=== PATIENT | male | born 1980 | race Caucasian/White ===

== ENCOUNTER → 2020-07-23 13:17 | Outpatient (CLI) | payer OTHER, SELFPAY ==
--- NOTE | ~2020-07-23 | XR_ITS ---
EXAMINATION: XR fl inj hip LT for MR/CT DATE: 07/23/2020 14:40 INDICATION: Left hip pain, possible labral tear TECHNIQUE: A time-out was performed to verify the patient's name, date of , and procedure to b e performed. The procedure including the risks and benefits was discussed with the patient. Risks dis cussed included bleeding and infection. The patient understood the risks and agreed to proceed. The s kin overlying the left hip joint was prepared and draped in usual sterile fashion. The skin and subcu taneous tissues were infiltrated with 1% lidocaine for local anesthesia. A 22 G needle was advanced under fluoroscopic guidance into the joint. Injectate consisting of 12 mL of 1:2 1% lidocaine and 1:2 Omnipaque 240 was instilled. The needle was removed and the entry site was cleaned and dressed. Ther e were no immediate complications. Fluoroscopy exposure time was 1.0 minutes. The DAP for this proced ure was 12.704 Gycm2. FINDINGS: Real-time fluoroscopy demonstrates the needle and contrast in the left hip joint. IMPRESSION: 1. Successful left hip joint injection of contrast for subsequent CT arthrography. Reviewed, dictated and finalized at location B. IMPRESSION: 1. Successful left hip joint injection of contrast for subsequent CT arthrograp .
--- NOTE | ~2020-07-23 | CT_ITS ---
EXAMINATION: CT hip LT w con DATE: 07/23/2020 14:39 INDICATION: Left hip pain. Left hip labral tear. TECHNIQUE: Computed tomography (CT) of the left hip was performed without intravenous contrast after intra-articular injection of contrast (CT arthrogram). Automated exposure control and iterative recon struction technique were employed. The dose-length product was 213.81 mGy-cm. COMPARISON: None FINDINGS: Bone alignment is normal. No fracture. There is severe left hip osteoarthritis. The left ac etabular labrum is torn. IMPRESSION: 1. Severe left hip osteoarthritis. Reviewed, dictated and finalized at location A.
== END ==
PROVIDERS: Visit Provider Chiropractor
DX: M16.12 Unilateral primary osteoarthritis, left hip (principal)
CPT/HCPCS: 20610; 73701; 77002; Q9966; Q9967

== ENCOUNTER 2021-08-07 11:54 | Outpatient (CLI) | payer OTHER, SELFPAY ==
[2021-08-07 13:33] LABS: Urine Cotinine NEGATIVE
[2021-08-07 13:46] LABS: Hemoglobin A1C 4.9 % (<5.7)
== END 2021-08-07 11:55 | disposition home or self-care (01) ==
LOC: ANHSURGERY 11:58
PROVIDERS: PCP Family Medicine; Visit Provider Orthopaedic Surgery
DX: M16.12 Unilateral primary osteoarthritis, left hip (principal); Z01.818 Encounter for other preprocedural examination
CPT/HCPCS: 80307; 83036; 86850; 86900; 86901; 87070

== ENCOUNTER 2021-08-18 02:29 | Day surgery (SDC) | payer OTHER, SELFPAY ==
[2021-08-07 12:05] VITALS: BMI 39.7
[2021-08-07 12:39] VITALS: BP 152/92; PULSE 85; RESP 18; TEMP 36.7; O2SAT 99
--- NOTE | 2021-08-07 12:42 | PC.NURSE ---
Report to the Outpatient Waiting Room, entrance under the green pavilion located off [facility], at time _0600 on date 08/18/21 . OR Time: _0730 . - You and your visitor will be asked a series of questions to screen for COVID 19 for your protection. - Only one visitor is allowed at this time. - The patient visitor is requested to leave or wait in car when not with patient. - A mask is required within the hospital. Patients may have clear liquids (water, carbonated beverages, clear teas, apple juice) until 3 hours prior to surgery with a maximum of 20 ounces. - No food from midnight until time of surgery - Infants may have breast milk until 4 hours before surgery, infant formula 6 hours prior to surgery. - Children will be allowed to drink immediately following surgery. If applicable, please bring a bottle or sippy cup to assist with drinking. Juice, water, soda, and popsicles are readily available. For infants on formula, please bring formula the day of surgery. Pacifiers are allowed. Take the following medications with a SIP of water the morning of surgery: __DILTIAZEM,DOFETILIDE Medications to discontinue per physician ___CORA PER DR SANTANA NEXT APPT 08/11/21 Date to take last dose Please no make-up, nail welsh, hairspray, perfume, deodorant, or body powder the day of surgery. No jewelry (including any body piercings) or valuables the day of surgery, leave them at home. Please take a shower or bath the night before, or the morning of, surgery with an antibacterial soap. Wear comfortable, loose fitting clothing. Children are encouraged to wear pajamas. - Jewelry must be removed prior to entering the operating room. Rings and piercings that are not removed may be cut off. - The hospital will not accept responsibility for valuables. - Please leave all valuables, including medications, at home the day of surgery. If you are going home after surgery, a licensed otr flatbed driver must drive you home. - NO public transportation without another adult. - We recommend that an adult stay with you for 24 hours following discharge. - We also recommend that you do not drive, make important decision, drink alcoholic beverages, or take any drugs that were not prescribed by your health care provider for at least 24 hours after your discharge time. For Pediatric surgeries, we recommend two adults accompany the child home (only one inside the building at this time). Follow any additional instructions given to you from your surgeon. If you or anyone in your household have experienced Covid symptoms in the past week, please notify your surgeon or the nurse liaison at the phone number below for possible testing. VERBAL AND WRITTEN instructions given to __PT and asked if any additional questions and then verbalized understanding. Patient advised to call surgeon office or pre surgery nurse liaison [phone] if any additional questions.
--- NOTE | 2021-08-15 12:08 | PM.IMHP ---
H&P: HPI History of Present Illness Date/Time: 08/15/21 12:08 41-year-old male patient Dr. Iqbal who presents today for a left anterior total hip arthroplasty. Patient has been having symptoms for the last year in this left hip. Pain is over the anterior left thigh and left groin. He has pain with weight-bearing and most daily activities. He is unable take anti-inflammatories because he is on Xarelto due to history of AFib. He has been working on weight loss for the last several years. He has finally gotten his weight down so that his BMI is under 40. patient does have severe arthritis in the hip with symptoms on a daily basis. He is fairly miserable and feels he would rather proceed with total hip arthroplasty rather continue nonsurgical treatment <HUGO Vital - Last Filed: 08/15/21 12:15> Chief Complaint: Left hip DJD <HUGO Vital - Last Filed: 08/15/21 12:15> Review of Systems Review of Systems: All systems reviewed & are unremarkable except as noted in HPI and below <HUGO Vital - Last Filed: 08/15/21 12:15> [facility] Past Medical History Medical History: Medical History (Updated 08/18/21 @ 06:59 by Titus Stokes MD) Atrial fibrillation with RVR Chronic pain Extreme obesity EVANGELINA on CPAP Pacemaker Pilonidal cyst <HUGO Vital - Last Filed: 08/15/21 12:15> Surgical History Surgical History: Surgical History H/O cardiac radiofrequency ablation <HUGO Vital - Last Filed: 08/15/21 12:15> Family History Family History: Family History Father Alcohol abuse Heart disease Hypertension Acute myocardial infarction Mother Hypertension <HUGO Vital - Last Filed: 08/15/21 12:15> Social History Social History: Social History Social History: Single Smoking packs per day: 1 Smoking cigarettes per day: 20.0 Years smoked: 10 Smoking pack-years: 10.00 Smoking status: Former smoker Tobacco type: cigarettes Second hand tobacco smoke exposure: No Smoking end date: 04/12/14 Additional smoking assessment comments: DENIES ANY FORM OF TOBACCO USE Alcohol intake: former Substance use: current Substance use type: marijuana Last use: 08/06/21 Living arrangements: other Additional living arrangements comments: Pt and his girlfriend live together. Additional occupation/education comments: jeweler Gender identity (if verbalized by the patient): Male Sexual Orientation (if Verbalized by the Patient): Straight or Heterosexual Spiritual care concerns: No <HUGO Vital - Last Filed: 08/15/21 12:15> Meds Home Medications and Allergies Home medications: Home Medications Medication Instructions Recorded Confirmed Type diltiazem HCl 180 mg 360 mg PO BID 08/05/21 08/07/21 History capsule,extended release 24 hr dofetilide 500 mcg capsule 500 mcg PO Q12H 08/05/21 08/07/21 History furosemide 20 mg tablet 10 mg PO QAM 08/05/21 08/07/21 History magnesium oxide 800 mg PO BID 08/05/21 08/07/21 History potassium chloride 20 mEq 20 meq PO BID 08/05/21 08/07/21 History tablet,extended release(part/cryst) rivaroxaban 20 mg tablet 20 mg PO DAILY 08/05/21 08/07/21 History tramadol 50 mg tablet 50 mg PO Q6H PRN 08/05/21 08/07/21 History acetaminophen [Tylenol Arthritis 1,300 mg PO Q12H PRN 08/07/21 08/07/21 History Pain] <HUGO Vital - Last Filed: 08/15/21 12:15> Allergies/Adverse reactions: Allergies Allergy/AdvReac Type Severity Reaction Status Date / Time Cephalosporins Allergy Mild Hives Verified 08/07/21 12:12 Penicillins Allergy Mild Hives Verified 08/07/21 12:12 CEFADROXIL (Generic Allergy) Allergy Mild Hives Uncoded 08/07/21 12:12 NKFA Allergy Mild Hives Uncoded 08/07/21 12:12 <HUGO Vital - Last Derek
[2021-08-18] VITALS (19 sets, daily range): BP systolic 121–162; BP diastolic 75–94; PULSE 85–103; RESP 10–24; TEMP 36–36.8; O2SAT 98–100
--- NOTE | ~2021-08-18 | XR_ITS ---
XR hip LT 1V w AP pelvis DATE: 08/18/2021 11:38 INDICATION: Left total hip arthroplasty anterior approach TECHNIQUE: Postoperative portable AP and lateral views of left hip COMPARISON: None FINDINGS: Status post surgical resection of left femoral head and neck and placement of left total hi p replacement in normal alignment. There is expected mild postoperative subcutaneous emphysema. IMPRESSION: Status post left total hip arthroplasty Reviewed, dictated and finalized at location B.
--- NOTE | ~2021-08-18 | XR_ITS ---
XR surgery orthopedic DATE: 08/18/2021 11:15 INDICATION: Left total hip arthroplasty anterior approach TECHNIQUE: 40.1 seconds fluoroscopy time 16.43 mGy One spot radiograph COMPARISON: None FINDINGS: There is resection of the left femoral head and left total hip arthroplasty. The acetabulum and femoral components appear normally aligned. IMPRESSION: Left total hip arthroplasty Reviewed, dictated and finalized at Location A. Reviewed, dictated and finalized at location B. IMPRESSION: Left total hip arthroplasty
[2021-08-18] MEDS: ACETAMINOPHEN 500 MG TABLET 1000 MG PO ×3 (06:52→17:09)
--- NOTE | 2021-08-18 06:54 | WPDANESEPPF ---
Anes - Initial Pre Proc Eval Procedure: Operation Date: 08/18/21 07:30 Proposed Procedures p Left Total Hip Arthroplasty, Anterior Approach - Julius Boogie MD Date/Time: 08/18/21 06:54 Surgeon: Julius Boogie MD Pre Op Diagnosis: OA left hip Patient Data Age: 41 Gender: M Height: 1.78 m Weight: 125.7 kg Last Vital Signs Temp 36.7 C 08/07/21 12:39 Pulse 85 08/07/21 12:39 Resp 18 08/07/21 12:39 BP 152/92 H 08/07/21 12:39 Pulse Ox 99 08/07/21 12:39 Allergies Allergy/AdvReac Type Severity Reaction Status Date / Time Cephalosporins Allergy Mild Hives Verified 08/07/21 12:12 Penicillins Allergy Mild Hives Verified 08/07/21 12:12 CEFADROXIL (Generic Allergy) Allergy Mild Hives Uncoded 08/07/21 12:12 NKFA Allergy Mild Hives Uncoded 08/07/21 12:12 Home Medications Medication Instructions Recorded Confirmed Type diltiazem HCl 180 mg 360 mg PO BID 08/05/21 08/07/21 History capsule,extended release 24 hr dofetilide 500 mcg capsule 500 mcg PO Q12H 08/05/21 08/07/21 History furosemide 20 mg tablet 10 mg PO QAM 08/05/21 08/07/21 History magnesium oxide 800 mg PO BID 08/05/21 08/07/21 History potassium chloride 20 mEq 20 meq PO BID 08/05/21 08/07/21 History tablet,extended release(part/cryst) rivaroxaban 20 mg tablet 20 mg PO DAILY 08/05/21 08/07/21 History tramadol 50 mg tablet 50 mg PO Q6H PRN 08/05/21 08/07/21 History acetaminophen [Tylenol Arthritis 1,300 mg PO Q12H PRN 08/07/21 08/07/21 History Pain] Patient hx anesthesia problems: none Family hx anesthesia problems: none Results Review: All pre-operative results and documents have been reviewed as part of the pre-operative evaluation. [facility], [facility] Past Medical History Medical History (Updated 08/18/21 @ 06:59 by Titus Stokes MD) Atrial fibrillation with RVR Chronic pain Extreme obesity EVANGELINA on CPAP Pacemaker Pilonidal cyst Surgical History Surgical History H/O cardiac radiofrequency ablation Family History Family History Father Alcohol abuse Heart disease Hypertension Acute myocardial infarction Mother Hypertension Social History Social History Social History: Single Smoking packs per day: 1 Smoking cigarettes per day: 20.0 Years smoked: 10 Smoking pack-years: 10.00 Smoking status: Former smoker Tobacco type: cigarettes Second hand tobacco smoke exposure: No Smoking end date: 04/12/14 Additional smoking assessment comments: DENIES ANY FORM OF TOBACCO USE Alcohol intake: former Substance use: current Substance use type: marijuana Last use: 08/06/21 Living arrangements: other Additional living arrangements comments: Pt and his girlfriend live together. Additional occupation/education comments: jeweler Gender identity (if verbalized by the patient): Male Sexual Orientation (if Verbalized by the Patient): Straight or Heterosexual Spiritual care concerns: No Anes - Eval Final PreProcedure Day of Procedure 08/18/21 06:54 Patient weight: morbidly obese Heart: regular rate and rhythm (paced) and tachycardia Lungs: clear to auscultation Airway: Mallampati scale class II and special considerations poor dentition (severe dental caries) Neurological: alert and oriented Last oral intake: >/= 8 hours ASA classification: IV Emergent: no Anesthetic plan: proceed Anesthesia type and monitoring: general ETT and standard monitoring Results Review: All pre-operative results and documents have been reviewed as part of the pre-operative evaluation. Informed Consent: The patient's anesthetic plan and its attendant risks and benefits were discussed with the patient/family/POA. Questions were solicited and answers provided to the satisfaction of the patient/family/POA.
[2021-08-18] MEDS: TRANEXAMIC ACID 1,000MG/ISO100 1,000 MG/100 ML BAG 200 MG IVPB (07:01)
[2021-08-18] MEDS: LACTATED RINGERS 1,000 ML 30 ML IV CONT ×2 (07:03→12:15)
--- NOTE | 2021-08-18 07:22 | WPDHPUPDATE1 ---
History and Physical Update Update Date/Time: 08/18/21 07:22 History and Physical has been reviewed, including an updated exam of the patient. There are NO changes in the patient's condition. Risks, benefits, and alternatives have been discussed and questions answered. Patient agrees to proceed with procedure. Patient NOW states he is allergic to Duricef per his mother who we spoke to on the phone. Unsure of reaction but told to never use again - age 1 yo. Discussed option of allergy testing. Patient would prefer to proceed. Plan 2 weeks of Bactrim post op.
[2021-08-18] MEDS: AZTREONAM 2 GM in SODIUM CHLORIDE 0.9% IV 100 ML 200 ML IVPB (07:44)
[2021-08-18] MEDS: VANCOMYCIN HCL 1,000 MG VIAL 3000 MG IRRIGATION (08:18)
[2021-08-18] MEDS: AZTREONAM 1 GM in DEXTROSE 5% IN WATER 50 ML 100 ML IVPB ×2 (10:54→18:03)
[2021-08-18] MEDS: TRANEXAMIC ACID 1,000 MG/10 ML AMPUL 1000 MG IV PUSH (10:54)
--- NOTE | 2021-08-18 11:32 | W.PM.PROC2 ---
Procedure Note - Detailed Date of Procedure 08/18/21 Pre-op Diagnosis OA left hip, obesity BMI 38.8 Post-op Diagnosis Same Procedure Performed Direct anterior approach left total hip arthroplasty Surgeon Julius Boogie MD Hot Saw Operator Keira Anesthesia General Description of Procedure Patient brought the operating room and general anesthesia was administered. There is after extra difficulty with the procedure due to his BMI of 38.8. This added approximately 1 hour of operating time to the procedure. Boots were placed on both feet well-padded and [facility] prepped usual fashion. He received weight based vancomycin 2 g of Zaiz Tree in a.m. and 1 g of tranexamic acid preoperatively. A 10 cm longitudinal incision was made starting 3 cm lateral to the ASIS. This was taken down to the fascia over the tensor fascia josiah which was exposed and incised elevating the fascia over the anterior 1/2 the tensor fascia josiah muscle. The interval between TFL and rectus femoris developed. Crossing branches of ascending lateral femoral circumflex vessels were ligated with suture divided. Retractor was placed over the anteromedial capsule. The hip was abducted and internally rotated and the gluteus minimus carefully elevated off the lateral capsule. Inverted T capsulotomy was performed. Capsule was released off anterior femur and off the lateral piriformis fossa. Femoral neck osteotomy made according to preoperative templating. Femoral neck was removed and measured 52 mm in diameter. It was flattened and oblong in shape due to severe wear. The acetabulum was exposed. There is a large fractured osteophyte off the anterior superior acetabular rim which was removed. The posterior superior acetabular rim was also fragmented and these pieces were removed. Posterior labrum was excised. The hip was externally rotated and extended and the interval between the piriformis tendon and conjoined tendon incised allowing the piriformis to flipped posteriorly. This allowed some degree of resection of the conjoined tendon. With the leg back horizontal external rotation the acetabulum was exposed. We medialized with a 44 Reamer and reamed up to 51 which gave circumferential contact and the 51 trial was tight. We lightly reamed with a 52 and medialized an additional 2 mm with a 51 Reamer and impacted the 52 pinnacle cup at 40? of abduction and anteversion such that the anterior edge of the shell was a 1 or 2 mm under the anterior rim of the acetabulum. This left a shell about 5 mm proud posterior superiorly. Excellent Press-Fit was achieved. Single screw was placed in the ilium and a 36 inner diameter liner placed without difficulty. The hip was externally rotated extended and the femur exposed. We broached up to a size 8 which became difficult to seat had complete torsional stability. We trialed with the broach a few mm higher than I believe the broach height to be and with the +5 standard neck we could see that this length the leg a little more than we were trying to achieve. We are shooting for about for 5 mm of lengthening from his preoperative state. There was ample soft tissue tension. I elected to countersink the broach another 2 mm and we trialed again with the high offset neck and the 1.5 head and this gave us the appropriate leg length matching our preoperative plan and there was appropriate soft tissue tension with ample shock but no instability. We confirmed that there was no torsional plate in the broach and it was quite tight. We impacted the size 8 Depuy Actis high offset stem which seated fully without difficulty and impacted the 1.5 x 36 ceramic head on the clean and dried trunnion. After thorough irrigation with antibiotic solution hip was reduced stability and soft tissue tension reconfirmed. Capsule was reapproximated with a 2. Vicryl and the fascia approximated with running 1. Vicryl drain deep in the subcu layer an
[2021-08-18] MEDS: fentaNYL CITRATE INJ (*CRX) 100 MCG/2 ML VIAL 25 MCG IV PUSH ×6 (11:45→12:33)
--- NOTE | 2021-08-18 12:18 | SUR.PHASEI ---
1217: Simple mask removed.
[2021-08-18] MEDS: ONDANSETRON INJ 4 MG/2 ML VIAL IV PUSH ×2 (12:25→15:13)
[2021-08-18] MEDS: diazePAM INJ (*CRX) 10 MG/2 ML SYRINGE 2.5 MG IV PUSH (12:47)
[2021-08-18] MEDS: HYDROmorphone HCL INJ (*CRX) 1 MG/ML SYR IV PUSH ×2 (13:04→13:25)
--- NOTE | 2021-08-18 14:25 | ADMGEN ---
This patient, Caio Wolfe, was admitted to 2 Medical Room 241-01. Patient/family oriented to hospital policies and general routines including ID bracelet, bed and alarms, visiting hours, pain management, procedures, bathroom and other care routines, personal items, smoking policy, room service/diet, and visiting hours. Information on how to activate the Rapid Response Team has been discussed. Patient/Family are encouraged to report perceived risks to care and to ask questions if they do not understand what they are told or what they should do.
[2021-08-18] MEDS: SODIUM CHLORIDE 0.9% IV 1,000 ML 125 ML IV CONT (14:41)
[2021-08-18] MEDS: oxyCODONE HCL (*CRX) 5 MG TAB IR PO ×3 (14:50→21:56)
[2021-08-18] MEDS: MAGNESIUM OXIDE 400 MG TABLET 800 MG PO (16:39)
[2021-08-18] MEDS: POTASSIUM CHLORIDE 20 MEQ TABLET.ER PO (16:39)
[2021-08-18] MEDS: SENNA/DOCUSATE SODIUM TABLET 2 TAB PO (17:27)
[2021-08-18] MEDS: FAMOTIDINE 20 MG TABLET PO (20:12)
[2021-08-18] MEDS: dilTIAZem HCL CD 180 MG CAP.ER.24H 360 MG PO (20:12)
--- NOTE | 2021-08-18 21:54 | PHAR ---
HOME MED: DOFETILIDE 500 MCG; VERIFIED BY PHARMACY.
--- NOTE | 2021-08-18 22:24 | PM.IMCN ---
Assessment and Plan Assessment and plan (1) Atrial fib/flutter, transient: Status: Acute Assessment and Plan: Patient is to continue his Tikosyn. If patient were to miss more than 2 doses would have turgor restart with monitoring QT intervals closely. Patient states he has not missed a dose at this time. Would keep potassium around 4 and magnesium around 2. (2) History of total left hip replacement: Code(s): Z96.642 - Presence of left artificial hip joint Status: Acute Assessment and Plan: Will continue management per Orthopedic surgery. Patient is doing very well. HPI Data of Consult Consult date: 08/18/21 Requesting Physician: Julius Boogie MD Primary Care Provider: Farida Gillis MD Consult Narrative Narrative: Caio Wolfe is a 41 year old male who presented to the hospital for an elective left anterior total hip arthroplasty. Patient states that he has been having left hip pain for over a year, but he has not been able to take anti-inflammatory drugs secondary to being on anticoagulation for his atrial fibrillation. Patient states he has lost over 100 lb in the last year so he can have his hip replaced. Patient underwent elective left anterior total hip arthroplasty today and states he is feeling well. Patient states he has a known history of atrial fibrillation status post ablation and is on Tikosyn and was on Xarelto until surgery. Patient states he also has a known history of sick sinus syndrome status post pacemaker. Patient states he has been taking all medications without any difficulty. Patient states he follows up with his research project coordinator every 6 months and during his pacemaker interrogations he has been told he is in normal sinus rhythm approximately 96% of the time. Patient denies any chest pain, shortness breast, lightheadedness, dizziness, syncopal, near syncopal episodes, or palpitations. Review of Systems Review of Systems: A 12 point review of systems was completed patient all pertinent positive and negative per HPI the remainder are unremarkable. [facility] Past Medical History Medical History (Updated 08/18/21 @ 06:59 by Titus Stokes MD) Atrial fibrillation with RVR Chronic pain Extreme obesity EVANGELINA on CPAP Pacemaker Pilonidal cyst Surgical History Surgical History (Updated 08/18/21 @ 11:48 by Jaclyn Mckeon NP) H/O cardiac radiofrequency ablation Family History Family History Father Alcohol abuse Heart disease Hypertension Acute myocardial infarction Mother Hypertension Social History Social History Social History: Single Smoking packs per day: 1 Smoking cigarettes per day: 20.0 Years smoked: 10 Smoking pack-years: 10.00 Smoking status: Former smoker Second hand tobacco smoke exposure: No Additional smoking assessment comments: DENIES ANY FORM OF TOBACCO USE Alcohol intake: former Substance use: current Substance use type: marijuana Last use: 08/06/21 Living arrangements: other Additional living arrangements comments: Pt and his girlfriend live together. Additional occupation/education comments: jeweler Gender identity (if verbalized by the patient): Male Sexual Orientation (if Verbalized by the Patient): Straight or Heterosexual Spiritual care concerns: No Meds Home Medications and Allergies Home Medications Medication Instructions Recorded Confirmed Type diltiazem HCl 180 mg 360 mg PO BID 08/05/21 08/18/21 History capsule,extended release 24 hr dofetilide 500 mcg capsule 500 mcg PO Q12H 08/05/21 08/18/21 History furosemide 20 mg tablet 10 mg PO QAM 08/05/21 08/18/21 History magnesium oxide 800 mg PO BID 08/05/21 08/18/21 History potassium chloride 20 mEq 20 meq PO BID 08/05/21 08/18/21 History tablet,extended release(part/cryst) rivaroxaban 20 mg tablet 2
[2021-08-18] MEDS: WATER FOR IRRIGATION, STERILE 1,000 ML BOTTLE 1000 ML (22:46)
[2021-08-19] VITALS (8 sets, daily range): BP systolic 117–139; BP diastolic 81–90; PULSE 85–102; RESP 12–16; TEMP 36.6–36.7; O2SAT 97–100
[2021-08-19] MEDS: SODIUM CHLORIDE 0.9% IV 1,000 ML 125 ML IV CONT (00:55)
[2021-08-19] MEDS: oxyCODONE HCL (*CRX) 5 MG TAB IR PO ×4 (00:55→12:28)
[2021-08-19] MEDS: AZTREONAM 1 GM in DEXTROSE 5% IN WATER 50 ML 100 ML IVPB ×2 (04:19→11:33)
[2021-08-19 05:42] LABS: Basophils Percent Auto 0.1 % (0.2-1.2); Hematocrit 35.3 % (42.0-52.0); Hemoglobin 11.6 g/dL (14.0-18.0); Immature Granulocyte Absolute 0.07 K/mm3 (0.00-0.031); Immature Granulocyte Percent A 0.5 % (0-0.5); Lymphocytes Absolute Auto 1.18 K/mm3 (0.9-3.2); Lymphocytes Percent Auto 7.7 % (18.3-44.2); Mean Corpuscular HGB Conc 32.9 g/dl (32-36); Mean Corpuscular Hemoglobin 30.6 pg (26-34); Mean Corpuscular Volume 93.1 fl (80-100); Mean Platelet Volume 10.6 fl (7.4-10.4); Monocytes Percent Auto 6.5 % (2.6-8.5); Neutrophils Percent Auto 85.2 % (45.5-73.1); Platelet Count Result 192 k/mm3 (150-375); Red Blood Count 3.79 M/mm3 (4.6-6.20); Red Cell Distribution Width 12.7 % (11.5-14.5); White Blood Count 15.3 K/mm3 (4.5-10.0)
[2021-08-19 05:53] LABS: Anion Gap 5 mmol/L (8-16); Blood Urea Nitrogen 11 mg/dL (9-20); Calcium 7.9 mg/dL (8.4-10.2); Carbon Dioxide 24 mmol/L (22-30); Chloride 107 mmol/L (98-107); Estimated CRCL calculation 138 ml/min; Estimated Glomerular Filt Rate > 60; Glucose 128 mg/dL (65-110); Sodium 136 mmol/L (137-145)
--- NOTE | 2021-08-19 06:24 | PM.PNORT ---
Subjective Subjective Date/Time Seen: 08/19/21 06:24 postop day 1 patient is alert pleasant. He is afebrile and vital signs are stable. Morning labs are noted. Patient did have nausea yesterday after general anesthesia no episodes of vomiting. Overall pain is controlled. He was up with physical therapy yesterday standing was up to chair. He was not comfortable walking due to the nausea. Neurovascularly he is intact. His dressing is dry. His drain will be removed this morning. Overall patient is doing well. We will plan to have him work with physical therapy today and as long as he remains doing well and comfortable will plan on discharging him home later today. Objective Data Vital Signs Vital Signs: Vital Signs - 24 hr 08/18/21 07:00 08/18/21 11:38 08/18/21 11:50 Temperature 36.1 C L 36.2 C L Pulse Rate 87 102 H 103 H Respiratory Rate 18 16 20 Blood Pressure 131/92 H 142/91 H 162/91 H Pulse Oximetry 99 100 100 08/18/21 12:05 08/18/21 12:20 08/18/21 12:35 Temperature Pulse Rate 92 97 85 Respiratory Rate 10 L 16 16 Blood Pressure 157/92 H 152/90 H 129/78 Pulse Oximetry 100 100 98 08/18/21 12:50 08/18/21 13:05 08/18/21 13:20 Temperature Pulse Rate 97 99 89 Respiratory Rate 13 12 12 Blood Pressure 153/75 H 144/85 H 128/89 Pulse Oximetry 99 100 100 08/18/21 13:35 08/18/21 13:50 08/18/21 14:02 Temperature 36.8 C Pulse Rate 91 100 93 Respiratory Rate 12 15 18 Blood Pressure 137/82 122/91 H 136/83 Pulse Oximetry 100 100 100 08/18/21 14:17 08/18/21 14:47 08/18/21 15:47 Temperature 36.3 C L 36.2 C L 36.0 C L Pulse Rate 85 85 99 Respiratory Rate 16 24 H 24 H Blood Pressure 121/88 147/85 H 145/94 H Pulse Oximetry 100 100 100 08/18/21 16:03 08/18/21 20:00 08/18/21 20:20 Temperature 36.4 C Pulse Rate 85 91 85 Respiratory Rate 16 Blood Pressure 140/86 Pulse Oximetry 100 100 08/18/21 22:48 08/19/21 00:00 08/19/21 00:55 Temperature 36.7 C Pulse Rate 87 85 92 Respiratory Rate 12 Blood Pressure 117/81 Pulse Oximetry 100 100 08/19/21 02:46 08/19/21 04:00 08/19/21 04:17 Temperature 36.6 C Pulse Rate 89 85 87 Respiratory Rate 16 Blood Pressure 137/87 Pulse Oximetry 97 100 Intake/Output Intake/Output: Intake & Output 08/16/21 08/17/21 08/18/21 08/19/21 23:59 23:59 23:59 23:59 Intake Total 1620 1200 Output Total 775 Balance 1620 425 Meds/Results Medications: Active Medications Generic Name Dose Route Start Last Admin Trade Name Freq PRN Reason Stop Dose Admin Acetaminophen 1,000 mg 08/18/21 14:02 08/19/21 00:56 Acetaminophen 500 Mg Tablet PO Not Given Q6HR AARON Apixaban 2.5 mg 08/19/21 09:00 Apixaban 2.5 Mg Tablet PO Q12HR AARON Celecoxib 200 mg 08/19/21 21:00 Celecoxib 200 Mg Capsule PO DAILY AARON Cyclobenzaprine HCl 10 mg 08/18/21 18:53 Cyclobenzaprine Hcl 10 Mg Tablet PO Q8H PRN Muscle Spasm Diltiazem HCl 360 mg 08/18/21 21:00 08/18/21 20:12 Diltiazem Hcl Cd 180 Mg Cap.Er.24h PO 360 mg Q12HR AARON Administration Famotidine 20 mg 08/18/21 21:00 08/18/21 20:12 Famotidine 20 Mg Tablet PO 20 mg Q12HR AARON Administration Furosemide 10 mg 08/19/21 09:00 Furosemide 10 Mg Tablet PO QAM [facility] Home Med 1 each 08/18/21 22:00 08/19/21 00:57 Home Medication (Dofetilide 500 Mcg) BY MOUTH 09/17/21 21:59 1 each Q12HR AARON Administration Hydroxyzine HCl 50 mg 08/18/21 14:02 Hydroxyzine Hcl 25 Mg Tablet PO Q4H PRN Itching Aztreonam 1 gm/ Dextrose 50 mls @ 100 mls/hr 08/18/21 19:00 08/19/21 04:19 IVPB 08/19/21 11:29 100 mls/hr Q8H AARON Administration Vancomycin HCl 1,000 mg in 250 mls @ 250 mls/hr 08/18/21 19:00 08/18/21 19:40 Vancomycin 1,000 Mg/D5w 250 Ml IVPB 08/19/21 07:59 Infused Q12H AARON Infusion Sodium Chloride 1,000 mls @ 125 mls/hr 08/18/21 14:02 08/19/21 00:55 Normal Saline Iv IV CONT 125 mls/hr
--- NOTE | 2021-08-19 06:31 | PM.DS ---
DS: Admitting Diagnosis Discharge Date 08/19 Admitting Diagnosis Left hip DJD DS: Summary Hospital Course Hospital Course: Stable Time Spent with Patient Time attestation: Total time spent providing and/or coordinating discharge services: 41-year-old male who underwent left anterior total arthroplasty on 08/18. The procedure complications. Postoperatively he has been afebrile vital signs are stable. Neurovascularly he is intact. He is weight-bearing as tolerated with a walker for 1 month. He initially had some nausea immediately postoperatively on the day of surgery. No episodes of vomiting. This improved overnight. Postop day 1 patient is having no nausea. Pain was well controlled. He is on scheduled Tylenol as well as oxycodone 5mg. He is on Eliquis 2.5 mg b.i.d. for 1 week and then he will resume his Xarelto. He will be on Celebrex 200 mg daily while he is on Eliquis. He will go home on 08/19. Patient was advised to keep leg elevated at home but may be up walking as his comfort allows. He will also go home on Senokot and MiraLax as well as a 2 week course Bactrim. Patient advise any questions or concerns he is calling office otherwise we will see him at his appointed date. DS: Data Data Completed and Pending Labs on day of discharge: Labs from last 24 hours 08/19/21 08/19/21 04:57 04:57 WBC 15.3 H RBC 3.79 L Hgb 11.6 L Hct 35.3 L MCV 93.1 MCH 30.6 MCHC 32.9 RDW 12.7 Plt Count 192 MPV 10.6 H Immature Gran % (Auto) 0.5 Neut % (Auto) 85.2 H Lymph % (Auto) 7.7 L [place] % (Auto) 6.5 Eos % (Auto) 0.0 Baso % (Auto) 0.1 L Lymph # (Auto) 1.18 [place] # (Auto) 1.0 H Eos # (Auto) 0.0 Baso # (Auto) 0.0 Abs Immat Gran (auto) 0.07 H Absolute Neuts (auto) 13.0 H Absolute Nucleated RBC 0.0 Nucleated RBC % 0.0 Sodium 136 L Potassium 4.0 Chloride 107 Carbon Dioxide 24 Anion Gap 5 L BUN 11 Creatinine 0.80 Estim Creat Clear Calc 138 Estimated GFR > 60 Glucose 128 H Calcium 7.9 L Discharge Plan Discharge Patient Disposition: Home, Self-Care Discharge Instructions: JULIUS BOOGIE M.D [facility], [place] [address] [place] [address] POST-OPERATIVE DISCHARGE INSTRUCTIONS ANTERIOR TOTAL HIP ARTHROPLASTY 1. Move toes/feet up and down every hour while awake. 2. Be up walking every hour while awake. 3. Use cane in hand opposite of side of hip surgery or walker as comfort allows. Avoid sitting in a chair unless eating, receiving visitors or using the toilet. 4. When resting, lie on back with leg elevated above heart to minimize swelling. Significant swelling could indicate a blood clot and if this occurs, call the office (or go to the ER) to have a venous ultrasound performed. 5. Wound Care: Keep dry sponge on wound for 2 weeks. Use minimal tape. 6. May shower with dressing off. Patient Instructions: Apixaban (By mouth) Follow-up/Referrals: Julius Boogie MD [Physician] - Keep Reg. Scheduled Appt. Discharge Medications: New celecoxib [Celebrex] 200 mg Capsule 200 mg PO DAILY Qty: 13 RF: 0 polyethylene glycol 3350 [Miralax] 17 gram Powder In Packet 17 g PO QAM Qty: 30 RF: 0 sennosides-docusate sodium [Senokot-S] 8.6-50 mg Tablet 2 tab PO BID Qty: 60 RF: 0 sulfamethoxazole-trimethoprim 800-160 mg Tablet 1 tab PO Q12HR Qty: 28 RF: 0 acetaminophen 500 mg Tablet 1,000 mg PO Q6HR Qty: 90 RF: 0 oxycodone 5 mg Tablet 5 mg PO Q4HR Qty: 40 RF: 0 Eliquis 2.5 mg Tablet 2.5 mg PO Q12HR Qty: 13 RF: 0 Continued furosemide 20 mg tablet 10 mg PO QAM RF: 0 potassium chloride [Klor-Con M20] 20 mEq tablet,ER particles/crystals 20 meq PO BID RF: 0 magnesium oxide 400 mg magnesium tablet 800 mg PO BID RF: 0 diltiazem HCl 180 mg capsule,extended release 24hr 360 mg PO BID RF: 0 dofetilide 500 mcg capsule 50
--- NOTE | 2021-08-19 07:00 | PM.IMPN ---
Progress Note: A&P Assessment and Plan (1) Atrial fib/flutter, transient: Status: Acute Assessment and Plan: Soo did not appear to have any ectopy Continue his Tikosyn, and Jeremías Appears to have missed 2 doses, will get EKG to check QT interval Electrolytes appear to be stable Continue EKG monitoring (2) History of total left hip replacement: Code(s): Z96.642 - Presence of left artificial hip joint Status: Acute Assessment and Plan: POD 1 PT/OT Surgery to manage post op care Pain medications on board Bowel regimen Antibiotics x 3 doses DVT Xarelto Time Spent With Patient Time with patient: Greater than 35 minutes Subjective Date/time seen: 08/19/21 07:00 Interval history: 08/18/21 Narrative: Caio Wolfe is a 41 year old male who presented to the hospital for an elective left anterior total hip arthroplasty. Patient states that he has been having left hip pain for over a year, but he has not been able to take anti-inflammatory drugs secondary to being on anticoagulation for his atrial fibrillation. Patient states he has lost over 100 lb in the last year so he can have his hip replaced. Patient underwent elective left anterior total hip arthroplasty today and states he is feeling well. Patient states he has a known history of atrial fibrillation status post ablation and is on Tikosyn and was on Xarelto until surgery. Patient states he also has a known history of sick sinus syndrome status post pacemaker. Patient states he has been taking all medications without any difficulty. Patient states he follows up with his office services associate every 6 months and during his pacemaker interrogations he has been told he is in normal sinus rhythm approximately 96% of the time. Patient denies any chest pain, shortness breast, lightheadedness, dizziness, syncopal, near syncopal episodes, or palpitations. 08/19/21 0700 Patient was laying in bed. He stated that he is feeling better today. Nausea was his main concern, but has resolved. He did state that his pain is not bad, and his hip is just mostly sore. He denies any chest pain, cough, nausea, vomiting, weakness, or fatigue. He stated that he is excited to see what PT will be like, and he is excited to be going home as well. WBC is elevated, probably related to the surgery. He does not show any other signs of infection. He did state that he is eating, but very little. He states that he could eat, but is not really hungry. He appears to be stable for discharge at this time. Review of Systems Review of Systems: All systems reviewed & are unremarkable except as noted in HPI and below Exam Const: General: cooperative, healthy appearing, no acute distress, well developed, alert and awake Nutritional Appearance: well nourished Orientation/consciousness: patient oriented x3 Limitations: no limitations HENMT: Head: normal to inspection Ears: hearing grossly normal bilaterally General nose exam: Normal external nose present Mouth: Yes Normal oral and palatal mucosa present, Yes lip normal and Yes tongue normal Teeth and gingiva: abnormal tooth and associated gingiva and poor dentition Eyes: General: appearance normal, both eyes and all related structures Neck: Neck: normal visual inspection, full ROM, trachea midline and supple Chest: Chest palpation & inspection: normal inspection of the chest Resp: Effort & Inspection: normal respiratory effort and able to speak in complete sentences Auscultation: clear to auscultation bilaterally Cardio: Jugular venous distension: no JVD Rate: regular rate Rhythm: regular rhythm Heart sounds: S1 normal heart sound present and S2 normal heart sound present Peripheral pulses: Peripheral pulses 2+ throughout GI: Inspection: normal to inspection GI Palp: Yes Soft to palpation and No Tenderness to palpation present (GI) Auscultation: normal bowel sounds Skin: General skin e
--- NOTE | 2021-08-19 07:22 | ECG_ITS ---
Measurements Intervals [place] Rate: 85 P: 73 SC: 217 QRS: 58 QRSD: 101 T: -26 QT: 370 QTc: 441 Interpretive Statements ELECTRONIC ATRIAL PACEMAKER BORDERLINE ST-T WAVE ABNORMALITY- INFERIOR LEADS BASELINE ARTIFACT- AVR, V6 BORDERLINE ECG Electronically Signed On 08-19-2021 10:15:52 CDT by Sourav Rhodes D.O.
--- NOTE | 2021-08-19 07:54 | WPDANESPN ---
Anes - Prog Note Post-Op Date/Time: 08/19/21 07:54 Cardiovascular status: normal Respiratory status: normal Airway patency: baseline Mental status: baseline Post-Op hydration status: normal Vital Signs: Last Vital Signs Temp 36.6 C 08/19/21 04:17 Pulse 87 08/19/21 04:17 Resp 16 08/19/21 04:17 BP 137/87 08/19/21 04:17 Pulse Ox 100 08/19/21 04:17 Pain Score (VAS): 0 I/O: Intake & Output 08/18/21 08/18/21 08/19/21 15:59 23:59 07:59 Intake Total 993 627 6299 Output Total 775 Balance 450 570 425 Laboratory Tests 08/19/21 04:57 08/19/21 04:57 08/19/21 08/19/21 04:57 04:57 WBC 15.3 H RBC 3.79 L Hgb 11.6 L Hct 35.3 L MCV 93.1 MCH 30.6 MCHC 32.9 RDW 12.7 Plt Count 192 MPV 10.6 H Immature Gran % (Auto) 0.5 Neut % (Auto) 85.2 H Lymph % (Auto) 7.7 L [place] % (Auto) 6.5 Eos % (Auto) 0.0 Baso % (Auto) 0.1 L Lymph # (Auto) 1.18 [place] # (Auto) 1.0 H Eos # (Auto) 0.0 Baso # (Auto) 0.0 Abs Immat Gran (auto) 0.07 H Absolute Neuts (auto) 13.0 H Absolute Nucleated RBC 0.0 Nucleated RBC % 0.0 Sodium 136 L Potassium 4.0 Chloride 107 Carbon Dioxide 24 Anion Gap 5 L BUN 11 Creatinine 0.80 Estim Creat Clear Calc 138 Estimated GFR > 60 Glucose 128 H Calcium 7.9 L Post-procedural complaints: nausea (resolved now) and vomiting Patient Feedback: Patient satisfied with anesthetic care.
[2021-08-19] MEDS: FUROSEMIDE 10 MG TABLET PO (09:05)
[2021-08-19] MEDS: SENNA/DOCUSATE SODIUM TABLET 2 TAB PO (09:05)
[2021-08-19] MEDS: MAGNESIUM OXIDE 400 MG TABLET 800 MG PO (09:05)
[2021-08-19] MEDS: APIXABAN 2.5 MG TABLET PO (09:05)
[2021-08-19] MEDS: POTASSIUM CHLORIDE 20 MEQ TABLET.ER PO (09:05)
[2021-08-19] MEDS: FAMOTIDINE 20 MG TABLET PO (09:05)
[2021-08-19] MEDS: dilTIAZem HCL CD 180 MG CAP.ER.24H 360 MG PO (09:07)
[2021-08-19] MEDS: polyethylene glycoL 3350 17 GM POWD.PACK PO (09:07)
[2021-08-19] MEDS: CELECOXIB 200 MG CAPSULE PO (09:20)
[2021-08-19] MEDS: ACETAMINOPHEN 500 MG TABLET 1000 MG PO (11:34)
== END 2021-08-19 13:45 | disposition home or self-care (01) ==
LOC: ANHSURGERY 06:01 → ANH2MED 14:09
PROVIDERS: Physician Assistant Surgical; PCP Family Medicine; Visit Provider Orthopaedic Surgery
PROC: (CPT 27130; principal; 2021-08-18 07:30)
DX: M16.11 Unilateral primary osteoarthritis, right hip (principal); M25.552 Pain in left hip; R10.30 Lower abdominal pain, unspecified; I48.20 Chronic atrial fibrillation, unspecified; G47.33 Obstructive sleep apnea (adult) (pediatric); Z95.0 Presence of cardiac pacemaker; Z87.891 Personal history of nicotine dependence; F12.90 Cannabis use, unspecified, uncomplicated; E66.9 Obesity, unspecified; Z68.38 Body mass index [BMI] 38.0-38.9, adult; Z79.01 Long term (current) use of anticoagulants
CPT/HCPCS: 27130; 36415; 73501; 80048; 80307; 83036; 85025; 86850; 86900; 86901; 87070; 93005; 97110; 97116; 97161; 97165; 97530; 97535; A9270; C1776; J0171; J0330; J0690; J1100; J1170; J2250; J2270; J2405; J2704; J2710; J2795; J3010; J3360; J3370; J7030; J7120

== ENCOUNTER 2021-10-21 19:11 | Emergency (ER) | payer OTHER, SELFPAY ==
[2021-10-21 19:25] VITALS: BP 134/93; PULSE 86; RESP 16; TEMP 37.1; O2SAT 99
--- NOTE | 2021-10-21 19:30 | ED.ABDPAIN ---
HPI - Abdominal Pain General Chief Complaint: Abdominal Pain Stated Complaint: abd pain/vomiting Time Seen by Provider: 10/21/21 19:30 Source: patient and RN notes reviewed Mode of arrival: ambulatory Limitations: no limitations History of Present Illness HPI narrative: 41-year-old male presents to the [facility] with complaints abdominal pain and vomiting. Patient reports the pain started approximately 2 weeks ago. For the last 2 days has not been able to eat or drink anything. No treatment prior to arrival. Patient is pale. Oral mucosa dry Related Data Home Medications Medication Instructions Recorded Confirmed diltiazem HCl 180 mg 360 mg PO BID 08/05/21 10/21/21 capsule,extended release 24 hr dofetilide 500 mcg capsule 500 mcg PO Q12H 08/05/21 10/21/21 furosemide 20 mg tablet 10 mg PO QAM 08/05/21 10/21/21 magnesium oxide 800 mg PO BID 08/05/21 10/21/21 potassium chloride 20 mEq 20 meq PO BID 08/05/21 10/21/21 tablet,extended release(part/cryst) (Klor-Con M) rivaroxaban 20 mg tablet (Xarelto) 1 tablet PO DAILY 10/21/21 10/21/21 Allergies Allergy/AdvReac Type Severity Reaction Status Date / Time cefadroxil Allergy Mild Hives Verified 10/21/21 20:10 Cephalosporins Allergy Mild Hives Verified 10/21/21 20:10 Penicillins Allergy Mild Hives Verified 10/21/21 20:10 NKFA Allergy Mild Hives Uncoded 08/18/21 07:29 Review of Systems Review of Systems: All systems reviewed & are unremarkable except as noted in HPI and below Constitutional: Constitutional: Reports no additional constitutional complaints, Denies chills and Denies fever(s) Eyes: Eyes: Reports no additional eye complaints ENT: Reports system reviewed and no additional complaints, except as documented Cardiovascular: Cardiovascular: Reports no additional cardiovascular complaints Respiratory: Respiratory: Reports no additional respiratory complaints Gastrointestinal: Gastrointestinal: Reports as per HPI, Reports abdominal pain, Reports nausea and Reports vomiting Musculoskeletal: Musculoskeletal: Reports no additional musculoskeletal complaints Integumentary/Breasts: Skin/Breast: Reports system reviewed and no additional complaints, except as docu Neurologic: Reports system reviewed and no additional complaints, except as documented Psychiatric: Psychiatric: Reports no additional psychiatric complaints Allergic/Immunologic: Allergic/Immunologic: Reports no additional allergic/immunologic complaints [facility] Past Medical History Medical History Atrial fibrillation with RVR Chronic pain Extreme obesity EVANGELINA on CPAP Pacemaker Pilonidal cyst Surgical History Surgical History H/O cardiac radiofrequency ablation Family History Family History Father Alcohol abuse Heart disease Hypertension Acute myocardial infarction Mother Hypertension Social History Social History Social History: Single Smoking packs per day: 1 Smoking cigarettes per day: 20.0 Years smoked: 10 Smoking pack-years: 10.00 Smoking status: Former smoker Second hand tobacco smoke exposure: No Additional smoking assessment comments: DENIES ANY FORM OF TOBACCO USE Alcohol intake: former Substance use: current Substance use type: marijuana Last use: 08/06/21 Additional living arrangements comments: Pt and his girlfriend live together. Additional occupation/education comments: jeweler Gender identity (if verbalized by the patient): Male Sexual Orientation (if Verbalized by the Patient): Straight or Heterosexual Spiritual care concerns: No Comments At the time of my signature, I reviewed and agree with the nursing past medical, surgical, social, and family history. There is no relevant family history pertinent to the pat
== END 2021-10-21 19:38 | disposition short-term general hospital (02) ==
LOC: EXPCOLL 19:14
PROVIDERS: Emergency Provider Nurse Practitioner
DX: R10.11 Right upper quadrant pain (principal); R10.13 Epigastric pain; R11.2 Nausea with vomiting, unspecified; Z87.891 Personal history of nicotine dependence; G47.33 Obstructive sleep apnea (adult) (pediatric); Z95.0 Presence of cardiac pacemaker; E66.9 Obesity, unspecified; Z68.41 Body mass index [BMI] 40.0-44.9, adult
CPT/HCPCS: 99212; G0463

== ENCOUNTER 2021-10-21 19:53 | Inpatient (IN) | payer OTHER, SELFPAY ==
--- NOTE | ~2021-10-21 | CT_ITS ---
EXAMINATION: CT abdomen pelvis w con DATE: 10/22/2021 01:50 INDICATION: Right upper quadrant abdominal pain. TECHNIQUE: Computed tomography (CT) of the abdomen and pelvis was performed with 100 mL Omnipaque 300 intravenous contrast. Automated exposure control and iterative reconstruction technique were employe d. The dose-length product was 1539.23 mGy-cm. COMPARISON: None. FINDINGS: The visualized portions of the lung bases are clear without pneumonia or pleural effusion. The heart size is normal. There are pacer wires in right atrium and right ventricle. No pericardial e ffusion. Pneumobilia is noted, likely secondary to sphincterotomy. There are gallstones in the gallbl adder, which is distended. Calcifications in the spleen are consistent with old granulomatous disease . The pancreas, adrenal glands, and kidneys are normal. Prominent fat in left inguinal canal may be a hernia. There is diverticulosis of the colon without evidence of diverticulitis. The appendix is not visualized. There are no pathologically enlarged lymph nodes. There is no free intraperitoneal fluid . There is a total left hip arthroplasty. There is severe right hip osteoarthritis. There is a 5 mm r adiopaque foreign body in the subcutaneous fat in right buttock. There is severe lumbar spondylosis. IMPRESSION: 1. Cholelithiasis and gallbladder distention suspicious for acute cholecystitis. Reviewed, dictated and finalized at location A. IMPRESSION: 1. Cholelithiasis and gallbladder distention suspicious for acute cholecystitis .
--- NOTE | ~2021-10-21 | XR_ITS ---
XR ERCP TECHNIQUE: Fluoroscopy used during ERCP procedure performed by [Gavin Alvarado MD] on 10/23/2021 . 87 seconds with 5 images captured. FINDINGS: Correlate with procedure note. The common bile duct is grossly unremarkable, although part ially obscured. IMPRESSION: Fluoroscopy used during ERCP procedure. Refer to procedural note. Reviewed, dictated and finalized at location A.
--- NOTE | ~2021-10-21 | XR_ITS ---
EXAMINATION: XR cholangiogram surg 1st inj DATE: 10/24/2021 14:40 INDICATION: Intraoperative evaluation during laparoscopic cholecystectomy TECHNIQUE: Multiple fluoroscopic images of the right upper quadrant were obtained during intraoperati ve cholangiography. A total of 103 fluoroscopic images were obtained. The amount of fluoroscopy time used during this procedure was 0.8 minutes. COMPARISON: None. FINDINGS: Cannulation of the cystic duct demonstrates filling of a normal appearing common bile duct which tapers smoothly distally with no intraluminal filling defects or stricture. There are some cont rast extravasation at the site of injection. Contrast extends into the duodenum and central intrahepa tic biliary tree which also appears normal. IMPRESSION: 1. No filling defects or strictures within the common bile duct or contrast opacified central biliary tree. Reviewed, dictated and finalized at location B. IMPRESSION: 1. No filling defects or strictures within the common bile duct or contrast opa cified central biliary tree.
[2021-10-21 20:04] VITALS: BP 144/99; PULSE 86; RESP 16; TEMP 36.4; O2SAT 98
[2021-10-21 20:31] VITALS: BMI 40.1
[2021-10-21 21:09] LABS: Basophils Percent Auto 0.3 % (0.2-1.2); Eosinophils Percent Auto 0.2 % (0-4.4); Hemoglobin 14.7 g/dL (14.0-18.0); Immature Granulocyte Absolute 0.05 K/mm3 (0.00-0.031); Immature Granulocyte Percent A 0.4 % (0-0.5); Lymphocytes Absolute Auto 0.66 K/mm3 (0.9-3.2); Lymphocytes Percent Auto 5.5 % (18.3-44.2); Mean Corpuscular HGB Conc 33.4 g/dl (32-36); Mean Corpuscular Hemoglobin 30.2 pg (26-34); Mean Corpuscular Volume 90.3 fl (80-100); Mean Platelet Volume 10.6 fl (7.4-10.4); Monocytes Absolute Auto 0.8 K/mm3 (0.1-0.6); Monocytes Percent Auto 6.7 % (2.6-8.5); Neutrophils Absolute Auto 10.4 K/mm3 (1.3-6.7); Neutrophils Percent Auto 86.9 % (45.5-73.1); Platelet Count Result 238 k/mm3 (150-375); Red Blood Count 4.87 M/mm3 (4.6-6.20); Red Cell Distribution Width 12.1 % (11.5-14.5)
[2021-10-21 21:23] LABS: Alanine Aminotransferase 530 U/L (6-50); Albumin Level 4.7 g/dL (3.5-5.1); Alkaline Phosphatase 240 U/L (38-126); Anion Gap 7 mmol/L (8-16); Aspartate Amino Transferase 196 U/L (17-59); Blood Urea Nitrogen 13 mg/dL (9-20); Calcium 9.4 mg/dL (8.4-10.2); Carbon Dioxide 27 mmol/L (22-30); Chloride 105 mmol/L (98-107); Estimated CRCL calculation 114 ml/min; Estimated Glomerular Filt Rate > 60; Glucose 95 mg/dL (65-110); Lipase 68 U/L (23-300); Sodium 139 mmol/L (137-145)
[2021-10-21 21:24] LABS: Appearance Urine Slightly Cloudy (Clear); Bilirubin Urine 3+ (Negative); Blood Urine Negative (Negative); Color Urine Amber (Yellow); Glucose Urine UA Negative (Negative); Ketones Urine 1+ mg/dL (Negative); Leukocyte Esterase Ur Negative LEU/UL (Negative); Nitrate Urine Negative (Negative); Protein Urine 1+ mg/dL (Negative); Specific Grav Ur >= 1.030 (1.001-1.035); pH Urine 5.5 (5.0-9.0)
[2021-10-21 21:33] LABS: Mucus Urine Heavy /lpf; RBC Urine 0-2 /hpf (0-2); Squamous Epithelial Cell Urine Few /hpf (Few); WBC Urine 0-3 /hpf
[2021-10-21 21:34] LABS: Add Urine Microscopic? YES
[2021-10-22] VITALS (11 sets, daily range): BP systolic 112–121; BP diastolic 57–78; PULSE 85–139; RESP 16–21; TEMP 37–38.7; O2SAT 98–100
--- NOTE | 2021-10-22 01:55 | ED.ABDPAIN ---
HPI - Abdominal Pain General Chief Complaint: Abdominal Pain Stated Complaint: abd pain, n/v Time Seen by Provider: 10/22/21 01:09 History of Present Illness HPI narrative: Patient is a 41-year-old male who presents to the ER with abdominal pain. Ongoing for the last 2 weeks. Epigastric and right upper quadrant. Feels like he is bloated after he eats and like he needs to belch. Occasionally he will belch. No fevers or chills or sweats. Has nausea and vomiting at times as well. No diarrhea. No exertional component. No chest pain. Related Data Home Medications Medication Instructions Recorded Confirmed diltiazem HCl 180 mg 360 mg PO BID 08/05/21 10/22/21 capsule,extended release 24 hr dofetilide 500 mcg capsule 500 mcg PO Q12H 08/05/21 10/22/21 furosemide 20 mg tablet 10 mg PO QAM 08/05/21 10/22/21 magnesium oxide 800 mg PO BID 08/05/21 10/22/21 potassium chloride 20 mEq 20 meq PO BID 08/05/21 10/22/21 tablet,extended release(part/cryst) (Klor-Con M) rivaroxaban 20 mg tablet (Xarelto) 1 tablet PO DAILY 10/21/21 10/22/21 Allergies Allergy/AdvReac Type Severity Reaction Status Date / Time cefadroxil Allergy Mild Hives Verified 10/21/21 20:10 Cephalosporins Allergy Mild Hives Verified 10/21/21 20:10 Penicillins Allergy Mild Hives Verified 10/21/21 20:10 NKFA Allergy Mild Hives Uncoded 08/18/21 07:29 Review of Systems Review of Systems: All systems reviewed & are unremarkable except as noted in HPI and below Constitutional: Constitutional: Denies chills and Denies fever(s) Cardiovascular: Cardiovascular: Denies chest pain, Denies rapid heart rate and Denies radiating jaw, neck or arm pain Respiratory: Respiratory: Denies cough and Denies dyspnea Gastrointestinal: Gastrointestinal: Reports abdominal pain, Reports bloating, Reports nausea and Reports vomiting Musculoskeletal: Musculoskeletal: Denies myalgias and Denies muscle cramps PMFSH Past Medical History Medical History Anticoagulant long-term use Atrial fibrillation with RVR Cholelithiasis with cholecystitis Chronic pain was from LBP but this is better overall. Did have lumbar injections in the past Elevated LFTs Extreme obesity Hypothyroidism, unspecified Morbid obesity with BMI of 40.0-44.9, adult EVANGELINA on CPAP Pacemaker Pilonidal cyst at age 13yo requiring surgery Surgical History Surgical History H/O cardiac radiofrequency ablation 2014 History of esophagogastroduodenoscopy (EGD) at age 13, cannot recall why he had this done History of left hip replacement August 2021 History of total left hip replacement Family History Family History Father Alcohol abuse Heart disease Hypertension Acute myocardial infarction Mother Hypertension Social History Social History Social History: Patient is single but lives with his girlfriend Kelvin. He has no biological children. Quit tobacco in 2013 after smoking a pack a day for 10 years. He rarely drinks alcohol. He denies drug use with the exception he smokes marijuana daily about 10 hits per day. No pets. Full code. He nominates Kelvin to be the individual who would make medical decisions for him if he is unable. Smoking packs per day: 1 Smoking cigarettes per day: 20.0 Years smoked: 10 Smoking pack-years: 10.00 Smoking status: Former smoker Second hand tobacco smoke exposure: No Additional smoking assessment comments: DENIES ANY FORM OF TOBACCO USE Alcohol intake: former Substance use: current Substance use type: marijuana Last use: 08/06/21 Additional living arrangements comments: Pt and his girlfriend live together. Additional occupation/education comments: jeweler Gender identity (if verbalized by the patient): Male Sexual Orientation (if Sarah
[2021-10-22] MEDS: ONDANSETRON INJ 4 MG/2 ML VIAL IV PUSH (02:44)
[2021-10-22] MEDS: CIPROFLOXACIN 400 MG/D5W 200ML 200 ML 200 MG IVPB ×3 (02:49→20:19)
[2021-10-22] MEDS: metroNIDAZOLE 500 MG/ISO 100ML 500 MG/100 ML BAG 100 MG IVPB ×3 (02:49→18:45)
--- NOTE | 2021-10-22 03:04 | ECG_ITS ---
Measurements Intervals [place] Rate: 155 P: MT: 0 QRS: 47 QRSD: 107 T: -48 QT: 270 QTc: 434 Interpretive Statements ATRIAL FLUTTER/TACHYCARDIA WITH RAPID VENTRICULAR RESPONSE ST-T WAVE ABNORMALITY IN INFERIOR LEADS- CONSIDER ISCHEMIA ABNORMAL ECG Electronically Signed On 10-22-2021 6:33:08 CDT by Sourav Rhodes D.O.
[2021-10-22] MEDS: dilTIAZem HCl INJ 25 MG/5 ML VIAL 15 MG IV PUSH (03:22)
[2021-10-22] MEDS: dilTIAZem HCl INJ 25 MG/5 ML VIAL 10 MG IV PUSH (03:36)
[2021-10-22 05:15] LABS: SARS-CoV-2 RNA PCR Negative
[2021-10-22] MEDS: SODIUM CHLORIDE 0.9% IV 1,000 ML 125 ML IV CONT ×2 (05:46→15:23)
--- NOTE | 2021-10-22 07:59 | PC.NURSE ---
This patient, Caio Wolfe, was admitted to Intensive Care Unit-8. 07:38 Report taken from Emmett REY Patient/family oriented to hospital policies and general routines including ID bracelet, bed and alarms, visiting hours, pain management, procedures, bathroom and other care routines, personal items, smoking policy, room service/diet, and visiting hours. Information on how to activate the Rapid Response Team has been discussed. Patient/Family are encouraged to report perceived risks to care and to ask questions if they do not understand what they are told or what they should do.
--- NOTE | 2021-10-22 08:01 | PM.IMHP ---
H&P: HPI History of Present Illness Date/Time: 10/22/21 08:01 Chief Complaint: Abdominal pain Narrative: 41yo male with hx of AFib, EVANGELINA on CPA and morbid obesity here for abdominal pain. Patient was well up until about 2 weeks prior to admission the developed abdominal pain. Initially started as as feeling ?gassy? better with belching she gets aches. His symptoms however progressively worsened. He was developing nausea and vomiting about 30-60 minutes after eating. Is bloating was worsening. He denies any hematemesis. With his total tolerating a type of food. Was having dry heaves. His not eating much with 2-3 days. He states overall that he would feel much better if he remained NPO. Symptoms would worsen with high fatty foods. Is having epigastric bilateral upper quadrant pain. Edema no diarrhea or constipation. No melena or hematochezia. No fevers but he was having chills and hot flashes. Was able tolerates medicines up until yesterday. He has also been anemic Pepto-Bismol and Tums at times. This has turned his stool dark which he is aware that this is a side effect. His urine has been darker no dysuria or hematuria. He has had 170 lb weight loss over the past 18-24 months which was intentional. He has changed his diet and start exercising. Weight loss was requirement for him to undergo a left hip surgery replacement which he had done on August 18. He tolerated the procedure well was only hospitalized for 2 days. Patient does have paroxysmal AFib. He was diagnosed in 2014. He was having cardiac pauses and a pacemaker was acquired which was placed in 2014. He also underwent cardiac ablation in 2014 as well. He is currently on diltiazem CD 360 mg q.12 and dofetilide 500 mcg q.12 and has been on this regimen for a few years. He sees Dr. Quezada at [facility] for his AFib. He last saw his physician in August and was cleared for the hip surgery. No stress test was done. Patient states he is in normal sinus rhythm 96% of the time by pacemaker interrogations. He has been compliant with his Xarelto with but his last dose was the evening of October 20. No history of strokes. Because of the worsening abdominal pain, patient presented to the urgent care center for evaluation and was sent to the emergency room. Patient was noted to be tachycardic in the emergency room with the heart rate 139. His temperature was 101.6?. White count was 12K with left shift. She liver enzymes are elevated. Lipase is normal. CT of the abdomen pelvis shows pneumobilia. There are gallstones in the gallbladder which is distended suspicious for acute cholecystitis. Foreign body to the right buttock. He does state he had EGD around age 15 but does not have much information otherwise about this procedure. In the ED, he received Zofran yes and 2 doses of IV diltiazem. He was given IV antibiotics with Cipro and Flagyl. He was admitted for further care. He feels much better this morning. Review of Systems Review of Systems: All systems reviewed & are unremarkable except as noted in HPI and below PMFSH Past Medical History Medical History (Updated 10/22/21 @ 09:11 by Marcos Galo MD) Atrial fibrillation with RVR Chronic pain was from LBP but this is better overall. Did have lumbar injections in the past Extreme obesity EVANGELINA on CPAP Pacemaker Pilonidal cyst at age 13yo requiring surgery Surgical History Surgical History (Updated 10/22/21 @ 09:06 by Marcos Galo MD) H/O cardiac radiofrequency ablation 2014 History of left hip replacement August 2021 Family History Family History Father Alcohol abuse Heart disease Hypertension Acute myocardial infarction Mother Hypertension Social History Social History (Updated 10/22/21 @ 09:07 by Marcos Galo MD) Social History: Patient is single but lives with his girlfriend Kelvin. He has no biolog
--- NOTE | 2021-10-22 08:04 | PC.NURSE ---
Upon arrival, Patient temp 101.7 orally, Cooled room, removed patient clothing. Rechecked temp 99.4 orally
[2021-10-22] MEDS: dilTIAZem HCL CD 180 MG CAP.ER.24H 360 MG PO ×2 (08:27→20:20)
[2021-10-22 09:48] LABS: Basophils Percent Auto 0.3 % (0.2-1.2); Eosinophils Percent Auto 0.2 % (0-4.4); Hematocrit 39.8 % (42.0-52.0); Hemoglobin 13.3 g/dL (14.0-18.0); Immature Granulocyte Absolute 0.03 K/mm3 (0.00-0.031); Immature Granulocyte Percent A 0.3 % (0-0.5); Lymphocytes Absolute Auto 0.58 K/mm3 (0.9-3.2); Lymphocytes Percent Auto 6.3 % (18.3-44.2); Mean Corpuscular HGB Conc 33.4 g/dl (32-36); Mean Corpuscular Hemoglobin 30.1 pg (26-34); Mean Platelet Volume 10.6 fl (7.4-10.4); Monocytes Absolute Auto 0.9 K/mm3 (0.1-0.6); Monocytes Percent Auto 9.7 % (2.6-8.5); Neutrophils Absolute Auto 7.7 K/mm3 (1.3-6.7); Neutrophils Percent Auto 83.2 % (45.5-73.1); Platelet Count Result 202 k/mm3 (150-375); Red Blood Count 4.42 M/mm3 (4.6-6.20); Red Cell Distribution Width 12.4 % (11.5-14.5); White Blood Count 9.3 K/mm3 (4.5-10.0)
[2021-10-22 09:59] LABS: INR 1.4; Prothrombin Time 16.2 Seconds (11.1-14.7)
[2021-10-22 10:00] LABS: Partial Thromboplastin Time 40.6 SECONDS (22.3-36.8)
[2021-10-22 10:16] LABS: Alanine Aminotransferase 378 U/L (6-50); Albumin Level 4.1 g/dL (3.5-5.1); Alkaline Phosphatase 230 U/L (38-126); Anion Gap 9 mmol/L (8-16); Aspartate Amino Transferase 133 U/L (17-59); Bilirubin,Total 5.3 mg/dL (0.2-1.3); Blood Urea Nitrogen 9 mg/dL (9-20); Calcium 8.6 mg/dL (8.4-10.2); Carbon Dioxide 22 mmol/L (22-30); Chloride 106 mmol/L (98-107); Estimated CRCL calculation 126 ml/min; Estimated Glomerular Filt Rate > 60; Glucose 92 mg/dL (65-110); Phosphorus 3.4 mg/dL (2.5-4.5); Potassium 3.5 mmol/L (3.4-5.0); Sodium 137 mmol/L (137-145)
[2021-10-22 10:30] LABS: CRP 3.6 mg/dL (<1.0)
[2021-10-22] MEDS: PANTOPRAZOLE SODIUM IV 40 MG VIAL IV PUSH (10:35)
--- NOTE | 2021-10-22 10:49 | PHAR ---
Home medication Dofetilide 500mcg capsules identified in pharmacy and returned to ICU
[2021-10-22 11:38] LABS: Thyroid Stimulating Hormone Reflex 0.676 uIU/mL (0.465-4.68)
--- NOTE | 2021-10-22 12:33 | PC.NURSE ---
Called and spoke with Dr. Alvarado and notified him he is consulted for this patient. He acknowledged the consult and said he would come see the patient.
--- NOTE | 2021-10-22 12:41 | PC.NURSE ---
Called Dr. Fran Tracey office to notify him of a consult. Left message with office safe.
[2021-10-22 12:49] LABS: Hepatitis B Surface Antigen Negative (Negative)
[2021-10-22 12:54] LABS: HAV RESULT Negative (Negative); Hepatitis B Core IgM Result Negative (Negative)
[2021-10-22 13:06] LABS: Hepatitis C Virus Antibody Negative (Negative)
--- NOTE | 2021-10-22 14:03 | PM.CNGS ---
Assessment and Plan Assessment and plan (1) Cholelithiasis with cholecystitis: Code(s): K80.10 - Calculus of gallbladder with chronic cholecystitis without obstruction Status: Acute Assessment and Plan: CT scan reviewed and discussed with the patient in detail. There is evidence of cholelithiasis with cholecystitis and pneumobilia. He could have acute and/or chronic calculous cholecystitis, but with his elevated bilirubin and findings of pneumobilia, it is concerning that he has ascending cholangitis. Would agree with continuing IV Ciprofloxacin/Flagyl and GI consultation. If GI evaluates the patient and wants to proceed with an ERCP, then we will await those results prior to planning a cholecystectomy. Regardless, I discussed surgery with the patient and what to expect with a laparoscopic cholecystectomy, possible open, by Dr. Tracey under general anesthesia. Description of the procedure, risks, benefits, expected outcomes, and expected recovery were discussed with the patient in detail. His co-morbidities, obesity, and anticoagulation make him a higher risk surgical candidate, which was discussed with the patient as well. Repeat labs tomorrow. Continue to hold Xarelto. (2) Sepsis: Code(s): A41.9 - Sepsis, unspecified organism Status: Acute Assessment and Plan: Criteria met on admission with tachycardia, fever, and leukocytosis in the presence of an infection. Source is likely gallbladder vs ascending cholangitis. Continue broad-spectrum IV antibiotics, IV fluids, and close monitoring. HR improving. Monitor labs. See plan above. (3) Elevated LFTs: Code(s): R79.89 - Other specified abnormal findings of blood chemistry Status: Acute Assessment and Plan: Total bilirubin 5.0 and up to 5.3 today. Hepatitis panel negative. I don't believe he would be a candidate for an MRCP due to his pacemaker. GI consulted and will decide on need for ERCP. Could have choledocholithiasis causing the hyperbilirubinemia, as well as a concern for ascending cholangitis given his fever, leukocytosis, jaundice, and pneumobilia noted on CT. Monitor labs. Continue IV antibiotics. Await GI evaluation. (4) Atrial fibrillation with RVR: Code(s): I48.91 - Unspecified atrial fibrillation Status: Acute Assessment and Plan: Heart rate improved, now rate controlled. He is now on his oral diltiazem. Management per Hospitalist. (5) Anticoagulant long-term use: Code(s): Z79.01 - intermediate (current) use of anticoagulants Status: Acute Assessment and Plan: Continue to hold the Xarelto for surgery. Last dose was 2 nights ago. (6) Morbid obesity with BMI of 40.0-44.9, adult: Code(s): E66.01 - Morbid (severe) obesity due to excess calories; Z68.41 - Body mass index [BMI] 40.0-44.9, adult Status: Acute Assessment and Plan: Patient has a history of morbid obesity and has been working on weight loss intentionally over the past two years for his recent hip surgery. He has lost a total of 170 pounds within the past 2 years. Encouraged to continue with diet and lifestyle modifications that promote weight loss. (7) EVANGELINA on CPAP: Code(s): G47.33 - Obstructive sleep apnea (adult) (pediatric); Z99.89 - Dependence on other enabling machines and devices Status: Acute Plan I have discussed the patient's case and plan of care with Dr. Tracey. History of Present Illness Consult details Consult date: 10/22/21 Reason for consult: gallstones (Cholelithiasis with cholecystitis, hyperbilirubinemia) Requesting physician: Андрей Freeman MD Narrative: This is a 41-year-old obese male with a history of atrial fibrillation on Xarelto, EVANGELINA with CPAP compliance, and s/p pacemaker, who was evaluated in the ER last night for nausea, vomiting, and abdominal pain. The patient reports first noticing mild symptoms about 2 weeks ago. After mostly evening meals, he would feel bloat
--- NOTE | 2021-10-22 14:12 | PC.NURSE ---
Spoke to Dr. Tracey, verified he is aware of the consult. Jaelyn came to see patient, Dr. Tracey will be by to see him as well.
--- NOTE | 2021-10-22 15:45 | WPDGICN ---
Assessment and Plan Assessment and plan (1) Cholelithiasis with cholecystitis: Code(s): K80.10 - Calculus of gallbladder with chronic cholecystitis without obstruction Status: Acute Assessment and Plan: Patient with gallstones and apparent cholecystitis by exam. Pneumobilia suggest cholangitis. Patient's fever is begun improved with broad-spectrum antibiotics. Leukocytosis noted improved at presentation is also decreasing. Plan to continue IV antibiotics. Surgery will be consulted for a ventral cholecystectomy. Because of elevated LFTs in an obstructive pattern ERCP will be anticipated tomorrow morning. Probably perform this preoperatively. MRCP cannot be performed because of pacemaker and hip replacement. (2) Elevated LFTs: Code(s): R79.89 - Other specified abnormal findings of blood chemistry Status: Acute Assessment and Plan: Elevated LFTs suggest obstructive jaundice. This could be related to cholecystitis with but cannot exclude did common bile duct gallstone. Will continue antibiotics and proceed with ERCP prior to cholecystectomy. Surgery will follow as well. (3) Morbid obesity with BMI of 40.0-44.9, adult: Code(s): E66.01 - Morbid (severe) obesity due to excess calories; Z68.41 - Body mass index [BMI] 40.0-44.9, adult Status: Acute (4) Atrial fibrillation with RVR: Code(s): I48.91 - Unspecified atrial fibrillation Status: Acute Assessment and Plan: Anticoagulation will need to be held until after cholecystectomy is accomplished. (5) Anticoagulant long-term use: Code(s): Z79.01 - [facility] (current) use of anticoagulants Status: Acute (6) History of total left hip replacement: Code(s): Z96.642 - Presence of left artificial hip joint Status: Acute GI Consult Note Consult date/time: 10/22/21 15:45 Reason for consult: Abnormal CT scan with cholecystitis and pneumobilia HPI: Caio Wolfe is a 41 year old male I am asked to see at the request of the [employer] helper service. Patient reports a 1-2 week history of vague abdominal pain. This intensified over the last several days including a fever. Initially fell somewhat gassy. He began to vomit several 30-60 minutes after eating. Over the last 2-3 days has not eaten much. Patient reports over the last 1 and half to 2 years he has lost more than 150 lb intentionally with weight loss. In the past he was diagnosed with atrial fibrillation 2014 he has a pacemaker. Additionally has a past history hip replacement. Medication was Xarelto has been held for several days. Patient presented to the emergency room and was admitted the hospital last evening. CT scan of the abdomen suggested pneumobilia as well as thickening of the gallbladder wall consistent with cholecystitis. LFTs were noted to be quite elevated. Fever noted time presentation is improved on antibiotics overnight. Review of Systems Review of Systems: Review of systems noncontributory. [facility] Past Medical History Medical History (Updated 10/22/21 @ 15:24 by AMMON Barraza) Atrial fibrillation with RVR Chronic pain was from LBP but this is better overall. Did have lumbar injections in the past Extreme obesity EVANGELINA on CPAP Pacemaker Pilonidal cyst at age 13yo requiring surgery Surgical History Surgical History H/O cardiac radiofrequency ablation 2014 History of esophagogastroduodenoscopy (EGD) at age 13, cannot recall why he had this done History of left hip replacement August 2021 Family History Family History Father Alcohol abuse Heart disease Hypertension Acute myocardial infarction Mother Hypertension Social History Social History Social History: Patient is single but lives with his girlfriend Kelvin.
--- NOTE | 2021-10-22 16:45 | WPDANESEPP ---
Anes - Eval Pre Procedure Procedure: Operation Date: 10/23/21 13:15 Proposed Procedures p Endoscopic Retro Cholangiopancreatogram - Gavin Alvarado MD Date/Time: 10/22/21 16:45 Pre Op Diagnosis: afib rvr,cholecystitis Patient Data Age: 41 Gender: M Height: 1.78 m Weight: 127.01 kg Last Vital Signs Temp 98.6 F 10/22/21 12:00 Pulse 87 10/22/21 14:00 Resp 16 10/22/21 12:00 BP 121/78 10/22/21 12:00 Pulse Ox 100 10/22/21 12:00 O2 Del Method Room Air 10/22/21 12:00 Allergies Allergy/AdvReac Type Severity Reaction Status Date / Time cefadroxil Allergy Mild Hives Verified 10/21/21 20:10 Cephalosporins Allergy Mild Hives Verified 10/21/21 20:10 Penicillins Allergy Mild Hives Verified 10/21/21 20:10 NKFA Allergy Mild Hives Uncoded 08/18/21 07:29 Home Medications Medication Instructions Recorded Confirmed Type diltiazem HCl 180 mg 360 mg PO BID 08/05/21 10/22/21 History capsule,extended release 24 hr dofetilide 500 mcg capsule 500 mcg PO Q12H 08/05/21 10/22/21 History furosemide 20 mg tablet 10 mg PO QAM 08/05/21 10/22/21 History magnesium oxide 800 mg PO BID 08/05/21 10/22/21 History potassium chloride 20 mEq 20 meq PO BID 08/05/21 10/22/21 History tablet,extended release(part/cryst) (Klor-Con M) rivaroxaban 20 mg tablet (Xarelto) 1 tablet PO DAILY 10/21/21 10/22/21 History Laboratory Tests 10/21/21 10/21/21 10/21/21 20:47 20:47 20:48 WBC 12.0 K/mm3 H K/mm3 (4.5-10.0) RBC 4.87 M/mm3 M/mm3 (4.6-6.20) Hgb 14.7 g/dL D g/dL (14.0-18.0) Hct 44.0 % % (42.0-52.0) MCV 90.3 fl fl (80-100) MCH 30.2 pg pg (26-34) MCHC 33.4 g/dl g/dl (32-36) RDW 12.1 % % (11.5-14.5) Plt Count 238 k/mm3 k/mm3 (150-375) MPV 10.6 fl H fl (7.4-10.4) Immature Gran % (Auto) 0.4 % % (0-0.5) Neut % (Auto) 86.9 % H % (45.5-73.1) Lymph % (Auto) 5.5 % L % (18.3-44.2) [place] % (Auto) 6.7 % % (2.6-8.5) Eos % (Auto) 0.2 % % (0-4.4) Baso % (Auto) 0.3 % % (0.2-1.2) Lymph # (Auto) 0.66 K/mm3 L K/mm3 (0.9-3.2) [place] # (Auto) 0.8 K/mm3 H K/mm3 (0.1-0.6) Eos # (Auto) 0.0 K/mm3 K/mm3 (0-0.3) Baso # (Auto) 0.0 K/mm3 K/mm3 (0.0-0.1) Abs Immat Gran (auto) 0.05 K/mm3 H K/mm3 (0.00-0.031) Absolute Neuts (auto) 10.4 K/mm3 H K/mm3 (1.3-6.7) Absolute Nucleated RBC 0.0 K/mm3 K/mm3 (0.0-0.012) Nucleated RBC % 0.0 % % (0.0-0.2) PT INR APTT Sodium 139 mmol/L mmol/L (137-145) Potassium 4.0 mmol/L mmol/L (3.4-5.0) Chloride 105 mmol/L mmol/L (98-107) Carbon Dioxide 27 mmol/L mmol/L (22-30) Anion Gap 7 mmol/L L mmol/L (8-16) BUN 13 mg/dL mg/dL (9-20) Creatinine 1.00 mg/dL mg/dL (0.7-1.3) Estim Creat Clear Calc 114 ml/min ml/min Estimated GFR > 60 (59 - ) Glucose 95 mg/dL mg/dL (65-110) Calcium 9.4 mg/dL mg/dL (8.4-10.2) Phosphorus Magnesium Total Bilirubin 5.0 mg/dL H mg/dL (0.2-1.3) Direct Bilirubin AST 196 U/L H U/L (17-59) ALT 530 U/L H U/L (6-50) Alkaline Phosphatase 240 U/L H U/L (38-126) C-Reactive Protein Total Protein 8.0 g/dL g/dL (6.3-8.2) Albumin 4.7 g/dL g/dL (3.5-5.1) Lipase 68 U/L U/L (23-300) TSH (Reflex) Urine Color [place] (Yellow) Urine Appearance Slightly cloudy (Clear) Urine pH 5.5 (5.0-9.0) Ur Specific [place] >= 1.030 (1.001-1.035) Urine Protein 1+ mg/dL H mg/dL (Negative) Urine Glucose (UA) Negative mg/dL mg/dL (Negative) Urine Ketones 1+ mg/dL H m
--- NOTE | 2021-10-22 17:14 | PC.NURSE ---
Notified Dr. Alvarado that patient had a total right hip replacement in August of 2021. Patient last took his Xarelto since Wednesday10/20/2021.
--- NOTE | 2021-10-22 17:39 | ECG_ITS ---
Measurements Intervals [place] Rate: 85 P: 123 NM: 228 QRS: 56 QRSD: 104 T: -15 QT: 359 QTc: 427 Interpretive Statements ELECTRONIC ATRIAL PACEMAKER ST-T WAVE ABNORMALITY IN INFERIOR LEADS- CONSIDER ISCHEMIA BASELINE ARTIFACT- I, II, AVR ABNORMAL ECG Electronically Signed On 10-23-2021 10:39:58 CDT by Sourav Rhodes D.O.
[2021-10-23] VITALS (21 sets, daily range): BP systolic 110–160; BP diastolic 65–96; PULSE 85–86; RESP 10–21; TEMP 36.4–37.2; O2SAT 99–100
[2021-10-23] MEDS: metroNIDAZOLE 500 MG/ISO 100ML 500 MG/100 ML BAG 100 MG IVPB ×3 (01:10→17:03)
[2021-10-23] MEDS: SODIUM CHLORIDE 0.9% IV 1,000 ML 125 ML IV CONT ×2 (02:00→17:00)
[2021-10-23 05:36] LABS: Basophils Percent Auto 0.7 % (0.2-1.2); Eosinophils Absolute Auto 0.2 K/mm3 (0-0.3); Eosinophils Percent Auto 3.6 % (0-4.4); Hematocrit 38.6 % (42.0-52.0); Hemoglobin 12.8 g/dL (14.0-18.0); Immature Granulocyte Absolute 0.03 K/mm3 (0.00-0.031); Immature Granulocyte Percent A 0.5 % (0-0.5); Lymphocytes Absolute Auto 0.81 K/mm3 (0.9-3.2); Mean Corpuscular HGB Conc 33.2 g/dl (32-36); Mean Corpuscular Hemoglobin 29.9 pg (26-34); Mean Corpuscular Volume 90.2 fl (80-100); Mean Platelet Volume 10.7 fl (7.4-10.4); Monocytes Absolute Auto 0.8 K/mm3 (0.1-0.6); Monocytes Percent Auto 14.3 % (2.6-8.5); Neutrophils Absolute Auto 3.9 K/mm3 (1.3-6.7); Neutrophils Percent Auto 66.9 % (45.5-73.1); Platelet Count Result 182 k/mm3 (150-375); Red Blood Count 4.28 M/mm3 (4.6-6.20); Red Cell Distribution Width 12.3 % (11.5-14.5); White Blood Count 5.8 K/mm3 (4.5-10.0)
[2021-10-23 05:57] LABS: Alanine Aminotransferase 276 U/L (6-50); Albumin Level 3.6 g/dL (3.5-5.1); Alkaline Phosphatase 210 U/L (38-126); Anion Gap 6 mmol/L (8-16); Aspartate Amino Transferase 87 U/L (17-59); Bilirubin,Total 2.9 mg/dL (0.2-1.3); Blood Urea Nitrogen 11 mg/dL (9-20); Calcium 8.1 mg/dL (8.4-10.2); Carbon Dioxide 23 mmol/L (22-30); Chloride 107 mmol/L (98-107); Estimated CRCL calculation 125 ml/min; Estimated Glomerular Filt Rate > 60; Glucose 75 mg/dL (65-110); Potassium 3.5 mmol/L (3.4-5.0); Sodium 136 mmol/L (137-145)
[2021-10-23] MEDS: dilTIAZem HCL CD 180 MG CAP.ER.24H 360 MG PO ×2 (08:08→20:14)
[2021-10-23] MEDS: PANTOPRAZOLE SODIUM IV 40 MG VIAL IV PUSH (08:10)
[2021-10-23] MEDS: CIPROFLOXACIN 400 MG/D5W 200ML 200 ML 200 MG IVPB ×2 (08:10→20:10)
--- NOTE | 2021-10-23 08:50 | P.PNAN_ITS ---
Anes - Eval Final PreProcedure Day of Procedure 10/23/21 08:50 Patient weight: morbidly obese Heart: regular rate and rhythm (paced) and tachycardia Lungs: clear to auscultation Airway: Mallampati scale class II and special considerations poor dentition (severe dental caries) Neurological: alert and oriented Last oral intake: >/= 8 hours ASA classification: III Emergent: no Anesthetic plan: proceed Anesthesia type and monitoring: general GIVS and ETT and standard monitoring Results Review: All pre-operative results and documents have been reviewed as part of the pre- operative evaluation. Informed Consent: The patient's anesthetic plan and its attendant risks and benefits were discussed with the patient/family/POA. Questions were solicited and answers provided to the satisfaction of the patient/family/POA.
--- NOTE | 2021-10-23 10:45 | PM.PNGS ---
Progress Note: A&P Assessment and Plan (1) Cholelithiasis with cholecystitis: Code(s): K80.10 - Calculus of gallbladder with chronic cholecystitis without obstruction Status: Acute Assessment and Plan: CT suggesting cholelithiasis with cholecystitis. Pneumobilia and hyperbilirubinemia concerning for ascending cholangitis. Plan for ERCP today, will await these results. Continue IV antibiotics. We discussed surgery again today and he was given a cholecystectomy information sheet with low fat diet instructions. Still planning to proceed with a cholecystectomy on this hospitalization. (2) Sepsis: Code(s): A41.9 - Sepsis, unspecified organism Status: Acute Assessment and Plan: Criteria met on admission with tachycardia, fever, and leukocytosis in the presence of an infection. Source is likely gallbladder vs ascending cholangitis. Continue broad-spectrum IV antibiotics, IV fluids, and close monitoring. WBC normal again today. Plan for ERCP today. (3) Elevated LFTs: Code(s): R79.89 - Other specified abnormal findings of blood chemistry Status: Acute Assessment and Plan: Could be related to choledocholithiasis or acute cholecystitis. Bilirubin trending down, could have passed a stone as well. ERCP planned for today. Monitor labs. (4) Atrial fibrillation with RVR: Code(s): I48.91 - Unspecified atrial fibrillation Status: Acute Assessment and Plan: Now rate controlled. He is now on oral diltiazem. Management per Hospitalist. (5) Anticoagulant long-term use: Code(s): Z79.01 - detention (current) use of anticoagulants Status: Acute Assessment and Plan: Continue to hold the Xarelto for surgery. (6) Morbid obesity with BMI of 40.0-44.9, adult: Code(s): E66.01 - Morbid (severe) obesity due to excess calories; Z68.41 - Body mass index [BMI] 40.0-44.9, adult Status: Acute (7) EVANGELINA on CPAP: Code(s): G47.33 - Obstructive sleep apnea (adult) (pediatric); Z99.89 - Dependence on other enabling machines and devices Status: Acute Plan I have discussed the patient's case and plan of care with Dr. Tracey. Subjective Subjective Date/Time Seen: 10/23/21 09:45 Patient reports: no new complaints, flatus and fever (100.1? F AT 4:00 P.M. YESTERDAY) Interval history: Patient seen and examined. He reports ?not feeling well? this morning, but cannot pinpoint a specific complaint. States his stomach feels upset, but not really having abdominal pain or significant nausea. No other complaints at this time. Still NPO and scheduled for an ERCP today. Review of Systems Review of Systems: All systems reviewed & are unremarkable except as noted in HPI and below Exam Const: General: comfortable and no acute distress Nutritional Appearance: obese Orientation/consciousness: patient oriented x3 GI: Inspection: non-distended and obesity GI Palp: Yes Soft to palpation, Yes Tenderness to palpation present (GI) (mild TTP in RUQ), No Guarding due to palpation present (GI) and No Rebound tenderness present Auscultation: normal bowel sounds Skin: General skin exam: jaundice Extrem: General: normal to inspection and no edema Psych: Insight: Good insight present (Psych) Objective Data Vital Signs Vital Signs: Vital Signs - 24 hr 10/22/21 12:00 10/22/21 12:00 10/22/21 12:00 Temperature 98.6 F Pulse Rate 95 95 Respiratory Rate 16 Blood Pressure 121/78 Pulse Oximetry 100 100 Oxygen Delivery Room Air 10/22/21 14:00 10/22/21 16:00 10/22/21 16:00 Temperature 100.1 F H Pulse Rate 87 86 Respiratory Rate 21 H Blood Pressure 114/67 Pulse Oximetry 98 100 Oxygen Delivery Room Air 10/22/21 16:00 10/22/21 17:50 10/22/21 18:00 Temperature 99.0 F Pulse Rate 88 85 Respiratory Rate Blood Pressure Pulse Oximetry Oxygen Delivery 10/22/21 20:00 10/22/21 20:00 10/22/21 20:00 Temperature
[2021-10-23] MEDS: LACTATED RINGERS 1,000 ML 150 ML IV CONT (13:14)
[2021-10-23] MEDS: PROMETHAZINE HCL 25 MG/ML AMPUL 12.5 MG IV PUSH (13:55)
--- NOTE | 2021-10-23 14:28 | SUR.PHASEII ---
spoke with Dr. Alvarado to change to from ICU to IMU transfer order. States he is does not have computer access from his current location to change order himself.
--- NOTE | 2021-10-23 15:00 | PM.IMPN ---
Progress Note: A&P Assessment and Plan (1) Sepsis: Code(s): A41.9 - Sepsis, unspecified organism Status: Acute Assessment and Plan: Patient with sepsis present on admission related to the tachycardia, leukocytosis and fever. The source of his sepsis is the acute cholecystitis. Sepsis symptoms have resolved. White count is normal. Continue IV Flagyl and Cipro. (2) Acute cholecystitis: Code(s): K81.0 - Acute cholecystitis Status: Acute Assessment and Plan: CT scan showing gallstones and evidence of acute cholecystitis. He has pneumobilia. It is unclear if he had any type of sphincterotomy when he was 15 years old. Both biliary and hepatic liver tests are elevated. ERCP showing removal of stone, debris and sludge with balloon sweep. He underwent sphincterotomy as well. It should be mentioned that the LFTs were improving prior to the procedure. Appreciate GI input. Possible laparoscopic cholecystectomy tomorrow. Patient will be NPO after midnight. (3) Choledocholithiasis: Code(s): K80.50 - Calculus of bile duct without cholangitis or cholecystitis without obstruction Status: Acute Assessment and Plan: Stone removed with balloon sweep. As above. (4) Atrial fibrillation with RVR: Code(s): I48.91 - Unspecified atrial fibrillation Status: Acute Assessment and Plan: Patient has known paroxysmal AFib. Patient developed AFib with RVR in the emergency room related to above He was treated with 2 doses of IV diltiazem. On presentation to the ICU, patient's heart rate was 150s. He was asymptomatic from this. He was resumed on his oral diltiazem. Was able to bring in his dofetilide so this was resumed as well. His heart rate improved. He has converted to normal sinus rhythm. Continue to monitor closely on telemetry. Xarelto remains on hold for pending surgery. (5) Elevated LFTs: Code(s): R79.89 - Other specified abnormal findings of blood chemistry Status: Acute Assessment and Plan: LFTs noted on admission. Hepatitis panel negative. COVID negative. Repeat levels trending downward this morning. [place] related to above. (6) EVANGELINA on CPAP: Code(s): G47.33 - Obstructive sleep apnea (adult) (pediatric); Z99.89 - Dependence on other enabling machines and devices Status: Acute Assessment and Plan: Patient compliant with CPAP at home. Will continue the same here. (7) Morbid obesity with BMI of 40.0-44.9, adult: Code(s): E66.01 - Morbid (severe) obesity due to excess calories; Z68.41 - Body mass index [BMI] 40.0-44.9, adult Status: Acute Assessment and Plan: Patient was congratulated on his weight loss. Encouraged patient to continue with healthy lifestyle choices. Plan DVT prophylaxis: SCDs Code status: Full Subjective Date/time seen: 10/23/21 15:00 Interval history: 41yo male with hx of AFib, EVANGELINA on CPA and morbid obesity here for abdominal pain.?? Patietn back from his procedure. He has slight nausea. No vomiting. No chest pain or shortness of breath. He has not had any liquids yet to eat since returning. Overall he feels much better. Exam Narrative: Tm 100.6 98.2 140/92 85 18 100% ra Gen - NARD Chest -clear to auscultation bilaterally. CV -regular rate and rhythm. S1-S2. Telemetry no significant dysrhythmias Abd - soft. Obese. Nontender. Positive bowel sounds Ext - no pedal edema Neuro -nonfocal Psych - normal mood and affect. Skin - warm and dry. Objective Data Vital Signs Vital Signs: Vital Signs - 24 hr 10/22/21 16:00 10/22/21 16:00 10/22/21 16:00 Temperature 100.1 F H Pulse Rate 86 88 Respiratory Rate 21 H Blood Pressure 114/67 Pulse Oximetry 98 100 Oxygen Delivery Room Air 10/22/21 17:50 10/22/21 18:00 10/22/21 20:00 Temperature 99.0 F Pulse Rate 85 85 Respiratory Rate Blood Pressure Pulse Oximetr
[2021-10-23] MEDS: CYCLOBENZAPRINE HCL 5 MG TABLET PO (22:08)
[2021-10-24] VITALS (20 sets, daily range): BP systolic 109–163; BP diastolic 66–101; PULSE 84–124; RESP 15–22; TEMP 35.7–37.1; O2SAT 97–100
[2021-10-24] MEDS: metroNIDAZOLE 500 MG/ISO 100ML 500 MG/100 ML BAG 100 MG IVPB ×3 (01:23→17:40)
[2021-10-24 04:24] LABS: Basophils Percent Auto 0.2 % (0.2-1.2); Hematocrit 40.5 % (42.0-52.0); Hemoglobin 13.1 g/dL (14.0-18.0); Immature Granulocyte Absolute 0.01 K/mm3 (0.00-0.031); Immature Granulocyte Percent A 0.2 % (0-0.5); Lymphocytes Absolute Auto 0.64 K/mm3 (0.9-3.2); Lymphocytes Percent Auto 13.3 % (18.3-44.2); Mean Corpuscular HGB Conc 32.3 g/dl (32-36); Mean Corpuscular Hemoglobin 29.4 pg (26-34); Mean Platelet Volume 10.5 fl (7.4-10.4); Monocytes Absolute Auto 0.4 K/mm3 (0.1-0.6); Monocytes Percent Auto 7.5 % (2.6-8.5); Neutrophils Absolute Auto 3.8 K/mm3 (1.3-6.7); Neutrophils Percent Auto 78.8 % (45.5-73.1); Platelet Count Result 188 k/mm3 (150-375); Red Blood Count 4.45 M/mm3 (4.6-6.20); Red Cell Distribution Width 12.3 % (11.5-14.5); White Blood Count 4.8 K/mm3 (4.5-10.0)
[2021-10-24 04:33] LABS: Alanine Aminotransferase 225 U/L (6-50); Albumin Level 3.9 g/dL (3.5-5.1); Alkaline Phosphatase 200 U/L (38-126); Anion Gap 8 mmol/L (8-16); Aspartate Amino Transferase 53 U/L (17-59); Bilirubin,Total 1.2 mg/dL (0.2-1.3); Blood Urea Nitrogen 9 mg/dL (9-20); Calcium 8.5 mg/dL (8.4-10.2); Carbon Dioxide 22 mmol/L (22-30); Chloride 109 mmol/L (98-107); Estimated CRCL calculation 158 ml/min; Estimated Glomerular Filt Rate > 60; Glucose 104 mg/dL (65-110); Lipase 48 U/L (23-300); Potassium 3.9 mmol/L (3.4-5.0); Sodium 139 mmol/L (137-145)
[2021-10-24 04:49] LABS: Magnesium 2.2 mg/dL (1.6-2.3)
--- NOTE | 2021-10-24 07:44 | WPDGIPROGNO ---
Progress Note: A&P Assessment and Plan (1) Choledocholithiasis: Code(s): K80.50 - Calculus of bile duct without cholangitis or cholecystitis without obstruction Status: Acute Assessment and Plan: Rather large common duct stone removed from the common bile duct yesterday via ERCP. Plan to proceed with cholecystectomy today per surgical service. Patient doing well with no residual abdominal pain today. (2) Anticoagulant long-term use: Code(s): Z79.01 - penitentiary (current) use of anticoagulants Status: Acute Assessment and Plan: Anticoagulation currently on hold. Will restart when okay with surgeons after surgery for cholecystitis today. (3) Cholelithiasis with cholecystitis: Code(s): K80.10 - Calculus of gallbladder with chronic cholecystitis without obstruction Status: Acute Assessment and Plan: Patient with gallstones apparent cholecystitis on presentation. Suspected cholangitis. Although no pus identified in the common duct at the time of endoscopy yesterday common duct stone was removed. (4) Atrial fibrillation with RVR: Code(s): I48.91 - Unspecified atrial fibrillation Status: Acute Subjective Date/time seen: 10/24/21 07:44 Patient alert and comfortable this morning. He had had ERCP yesterday with removal common duct stone. Feels greatly improved today. Review of Systems Review of Systems: Review of systems noncontributory. Exam Narrative: physical exam reveals patient to be alert. Comfortable at rest. HEENT exam reveals no icterus. Lungs are clear. Heart without murmur. Abdomen bowel sounds present soft nontender with no masses. Objective Data Vital Signs Vital Signs: Vital Signs - 24 hr 10/23/21 08:00 10/23/21 08:00 10/23/21 08:00 Temperature 99.0 F Pulse Rate 85 85 Respiratory Rate 18 Blood Pressure 142/96 H Pulse Oximetry 100 100 Oxygen Delivery Room Air 10/23/21 10:00 10/23/21 11:11 10/23/21 11:00 Temperature 97.6 F Pulse Rate 85 85 Respiratory Rate 17 Blood Pressure 160/90 H Pulse Oximetry 99 100 Oxygen Delivery Room Air 10/23/21 13:16 10/23/21 13:26 10/23/21 13:36 Temperature 98.2 F Pulse Rate 85 85 85 Respiratory Rate 21 H 21 H 19 Blood Pressure 118/67 115/75 119/68 Pulse Oximetry 100 100 100 Oxygen Delivery Room Air Room Air Room Air 10/23/21 13:46 10/23/21 13:56 10/23/21 14:06 Temperature Pulse Rate 85 85 85 Respiratory Rate 18 13 20 Blood Pressure 121/75 125/65 113/69 Pulse Oximetry 100 99 100 Oxygen Delivery Room Air Room Air Room Air 10/23/21 14:16 10/23/21 14:40 10/23/21 16:00 Temperature 99.0 F Pulse Rate 85 85 85 Respiratory Rate 20 18 18 Blood Pressure 118/70 140/92 H 134/92 H Pulse Oximetry 100 100 99 Oxygen Delivery Room Air 10/23/21 16:00 10/23/21 16:00 10/23/21 12:52 Temperature Pulse Rate 85 Respiratory Rate Blood Pressure Pulse Oximetry 100 100 Oxygen Delivery Room Air Room Air 10/23/21 18:00 10/23/21 20:00 10/23/21 20:00 Temperature Pulse Rate 85 85 85 Respiratory Rate 20 Blood Pressure Pulse Oximetry 100 Oxygen Delivery Room Air 10/23/21 20:00 10/23/21 22:00 10/24/21 00:00 Temperature 98.6 F Pulse Rate 85 85 85 Respiratory Rate 20 Blood Pressure 120/85 Pulse Oximetry 100 Oxygen Delivery 10/24/21 00:00 10/24/21 00:00 10/24/21 02:00 Temperature Pulse Rate 85 85 85 Respiratory Rate 22 H 22 H Blood Pressure 133/66 Pulse Oximetry 100 100 Oxygen Delivery Room Air 10/24/21 02:13 10/24/21 02:14 10/24/21 04:00 Temperature Pulse Rate 85 85 Respiratory Rate Blood Pressure Pulse Oximetry 98 98 Oxygen Delivery Room Air 10/24/21 04:00 10/24/21 04:00 10/24/21 06:00 Temperature 98.7 F Pulse Rate 85 85 85 Respiratory Rate 19 19 Blood Pressure 109/80 Pulse Oximetry 99 99 Oxygen Delivery Room Air 10/24/21 05:35 Temperature Pulse R
[2021-10-24] MEDS: CIPROFLOXACIN 400 MG/D5W 200ML 200 ML 200 MG IVPB ×2 (09:14→20:38)
[2021-10-24] MEDS: PANTOPRAZOLE SODIUM IV 40 MG VIAL IV PUSH (09:15)
[2021-10-24] MEDS: dilTIAZem HCL CD 180 MG CAP.ER.24H 360 MG PO ×2 (09:15→20:05)
[2021-10-24] MEDS: SODIUM CHLORIDE 0.9% IV 1,000 ML 125 ML IV CONT (09:17)
--- NOTE | 2021-10-24 09:44 | PM.IMPN ---
Progress Note: A&P Assessment and Plan (1) Sepsis: Code(s): A41.9 - Sepsis, unspecified organism Status: Acute Assessment and Plan: Patient with sepsis present on admission related to the tachycardia, leukocytosis and fever. The source of his sepsis is the acute cholecystitis. Sepsis symptoms have resolved. White count is normal. Continue IV Flagyl and Cipro. (2) Acute cholecystitis: Code(s): K81.0 - Acute cholecystitis Status: Acute Assessment and Plan: CT scan showing gallstones and evidence of acute cholecystitis. He has pneumobilia. It is unclear if he had any type of sphincterotomy when he was 15 years old. Both biliary and hepatic liver tests are elevated. ERCP showing removal of stone, debris and sludge with balloon sweep. He underwent sphincterotomy as well. It should be mentioned that the LFTs were improving prior to the procedure. Appreciate GI input. Possible laparoscopic cholecystectomy tomorrow. Patient will be NPO after midnight. 10/24/21 S/P lap vasquez today. Had ERCP yesterday w/ CBD stone removed. (3) Choledocholithiasis: Code(s): K80.50 - Calculus of bile duct without cholangitis or cholecystitis without obstruction Status: Acute Assessment and Plan: Stone removed with balloon sweep. As above. (4) Atrial fibrillation with RVR: Code(s): I48.91 - Unspecified atrial fibrillation Status: Acute Assessment and Plan: Patient has known paroxysmal AFib. Patient developed AFib with RVR in the emergency room related to above He was treated with 2 doses of IV diltiazem. On presentation to the ICU, patient's heart rate was 150s. He was asymptomatic from this. He was resumed on his oral diltiazem. Was able to bring in his dofetilide so this was resumed as well. His heart rate improved. He has converted to normal sinus rhythm. Continue to monitor closely on telemetry. Xarelto remains on hold for pending surgery. -Will resume rivaroxaban when cleared to resume it by surgery (5) Elevated LFTs: Code(s): R79.89 - Other specified abnormal findings of blood chemistry Status: Acute Assessment and Plan: LFTs noted on admission. Hepatitis panel negative. COVID negative. Repeat levels trending downward this morning. [place] related to above. (6) EVANGELINA on CPAP: Code(s): G47.33 - Obstructive sleep apnea (adult) (pediatric); Z99.89 - Dependence on other enabling machines and devices Status: Acute Assessment and Plan: Patient compliant with CPAP at home. Will continue the same here. (7) Morbid obesity with BMI of 40.0-44.9, adult: Code(s): E66.01 - Morbid (severe) obesity due to excess calories; Z68.41 - Body mass index [BMI] 40.0-44.9, adult Status: Acute Assessment and Plan: Patient was congratulated on his weight loss. Encouraged patient to continue with healthy lifestyle choices. Plan DVT prophylaxis: SCDs Code status: Full Subjective Date/time seen: 10/24/21 09:44 Patient seen and examined with family at bedside after surgery. Female family member has questions about monitoring the infraumbilical wound. All questions were answered. Patient reports some nausea s/p anesthesia, dry mouth and shoulder pain. Patient wants to know when he can start eating. Review of Systems Gastrointestinal: Gastrointestinal: Reports nausea and Denies vomiting Musculoskeletal: Musculoskeletal: Reports arthralgias Exam Narrative: GENERAL: NAD, cooperative HEENT: Normocephalic, atraumatic, anicteric NECK: Supple CV: Normal S1, S2, RRR, No MRG RESP: CTAB, Normal work of breathing. Abdomen: Soft, non-tender, non-distended, hypoactive BS. infraumbilical incision c/d/i w/ dermabond. EXTREMITIES: Warm and well perfused, no clubbing, cyanosis, or edema. SKIN: warm, dry and intact. NEURO: CN 2-12 grossly intact. Objective Data Vital Signs Vital Signs: Vital
[2021-10-24] MEDS: CHLORHEXIDINE GLUCONATE 4% SOL 120 ML BTL 1 APPLIC TOPICAL (11:20)
[2021-10-24] MEDS: LACTATED RINGERS 1,000 ML 30 ML IV CONT ×2 (11:40→16:27)
--- NOTE | 2021-10-24 12:13 | WPDHPUPDATE1 ---
History and Physical Update Update Date/Time: 10/24/21 12:13 History and Physical has been reviewed, including an updated exam of the patient. There are changes in the patient's condition.The patient has a rhythm it has been improved with medications. He has been off his blood thinner for 48 hours or more. He had ERCP yesterday which removed stones and sludge from the bile duct. Gallstones were seen on his original CT so he does need a laparoscopic cholecystectomy or open. May also do a cholangiogram at the time of the surgery. Risks, benefits, and alternatives have been discussed and questions answered. Patient agrees to proceed with procedure.
[2021-10-24] MEDS: BUPIVACAINE/EPINEPHRINE 0.25% 50 ML VIAL 30 ML INFILTRATE (13:06)
--- NOTE | 2021-10-24 16:14 | W.PM.PROC2 ---
Procedure Note - Detailed Date of Procedure 10/24/21 Pre-op Diagnosis Chronic cholecystitis with cholelithiasis (possible acute) 2.afib rvr,cholecystitis Post-op Diagnosis Other (Chronic cholecystitis with cholelithiasis with recent choledocholithiasis) Procedure Performed Laparoscopic cholecystectomy with intraoperative cholangiogram Surgeon Fran Tracey MD [employer] Work[employer] Sharon REY.OR [employer] Anesthesia General Indications This patient is a pleasant 41-year-old male who recently presented to the ER with jaundice. He also had epigastric pain. CT scan showed pneumobilia and suspected common bile duct stones. He had a successful ERCP yesterday. Because the gallbladder is the source of the stones we wanted to proceed as soon as possible with cholecystectomy. He did not have any complications such as pancreatitis after the ERCP so we proceeded today with a laparoscopic possible open cholecystectomy. Findings Patient have fairly pliable somewhat distended gallbladder. There were adhesions over the entire lower half of the gallbladder including over the triangle of [place]. Cholangiogram showed a short cystic duct with no remaining stones in the common bile duct and good flow into the duodenum. It also confirmed that I was away from the main bile duct with my clips on the cystic duct. Description of Procedure Procedure Details: Patient was seen preoperatively in the holding area and risks, benefits and alternatives confirmed. Patient was taken to the operating room and general anesthesia was induced. A time out was then preformed with the surgery team confirming patient and site of surgery. The abdomen was prepped and draped in the usual sterile fashion. Incision was made just below the umbilicus. Two stay sutures of O- Vicryl were used to elevate the mid-line fascia beneath the umbilicus and a small incision was made under direct vision. The peritoneum was entered. The 12 mm Rdz cannula was introduced under direct vision. First under low flow and then under high flow the abdomen was insufflated with carbon dioxide never exceeding a pressure of 14. Three 5 mm trocars were then introduced under direct vision. The following trocars were introduced under direct vision: a 5 mm in the epigastrium and two 5 mm trocars along the right costal margin. There were significant adhesions of the omentum to the underside of the gallbladder and these were taken down with blunt and sharp dissection. Bovie cautery was used for hemostasis. The gall bladder was grasped and the cystic duct and artery were dissected free and I carefully identified a window of safety with only two other structures in the area being the cystic duct and the cystic artery. I then used a mm endo-clip director of materials to place 2 clips on the patient's side 1 on the gallbladder side on the cystic artery and just 1 clip on the gallbladder side of the cystic duct. A small hole was made in the cystic duct with endoshears and a cholagio-cath introduced. This was held in place with a single 5 mm clip. A cholangiogram was obtained revealing free flow into the cystic duct, common bile duct, common hepatic, right and left hepatic ducts with free flow into the duodenum with no filling defects in the intra nor extrahepatic biliary tree and no dilation. The catheter was removed and the cystic duct was clipped with a 5 mm endoclip-director of materials placing 2 clips on the patient's side of the cystic duct. The cystic duct was then transected. The cystic artery was also transected at this point. The gall bladder was removed using electrocautery and then removed via the umbilical incision Using an endobag. Even using this we needed to extend the fascial defect both cephalad and inferior such that it was probably nearly 3 cm in diameter to allow the large gallbladder to come up and out of the abdomen within the bag there was some spill of bile. After removal palpation of the gallbladder revealed a single stone at least 2.5 cm in si
[2021-10-24] MEDS: fentaNYL CITRATE INJ (*CRX) 100 MCG/2 ML VIAL 25 MCG IV PUSH ×4 (16:21→16:47)
[2021-10-24] MEDS: PROMETHAZINE HCL 25 MG/ML AMPUL 12.5 MG IV PUSH ×2 (16:24→22:30)
[2021-10-24] MEDS: LACTATED RINGERS 1,000 ML 100 ML IV CONT (17:42)
[2021-10-24] MEDS: MORPHINE SULFATE (*CRX) 4 MG/ML INJ IV PUSH ×3 (17:46→23:40)
[2021-10-24] MEDS: SENNA/DOCUSATE SODIUM TABLET 2 TAB PO (20:06)
[2021-10-25] VITALS (13 sets, daily range): BP systolic 104–133; BP diastolic 61–93; PULSE 84–98; RESP 11–22; TEMP 36.4–36.9; O2SAT 98–100
[2021-10-25] MEDS: metroNIDAZOLE 500 MG/ISO 100ML 500 MG/100 ML BAG 100 MG IVPB ×3 (02:46→18:09)
[2021-10-25] MEDS: MORPHINE SULFATE (*CRX) 2 MG/ML INJ IV PUSH (02:57)
[2021-10-25 03:58] LABS: Hematocrit 39.3 % (42.0-52.0); Mean Corpuscular HGB Conc 33.1 g/dl (32-36); Mean Corpuscular Hemoglobin 29.8 pg (26-34); Mean Corpuscular Volume 90.1 fl (80-100); Mean Platelet Volume 10.6 fl (7.4-10.4); Platelet Count Result 201 k/mm3 (150-375); Red Blood Count 4.36 M/mm3 (4.6-6.20); Red Cell Distribution Width 12.4 % (11.5-14.5)
[2021-10-25 04:14] LABS: Alanine Aminotransferase 194 U/L (6-50); Albumin Level 3.7 g/dL (3.5-5.1); Alkaline Phosphatase 172 U/L (38-126); Anion Gap 6 mmol/L (8-16); Aspartate Amino Transferase 65 U/L (17-59); Bilirubin,Total 0.9 mg/dL (0.2-1.3); Blood Urea Nitrogen 7 mg/dL (9-20); Calcium 8.4 mg/dL (8.4-10.2); Carbon Dioxide 25 mmol/L (22-30); Chloride 108 mmol/L (98-107); Estimated CRCL calculation 157 ml/min; Estimated Glomerular Filt Rate > 60; Glucose 109 mg/dL (65-110); Potassium 3.8 mmol/L (3.4-5.0); Sodium 139 mmol/L (137-145)
[2021-10-25] MEDS: SODIUM CHLORIDE 0.9% IV 1,000 ML 125 ML IV CONT (06:45)
--- NOTE | 2021-10-25 08:13 | PM.PNGS ---
Progress Note: A&P Assessment and Plan (1) Cholelithiasis with cholecystitis: Code(s): K80.10 - Calculus of gallbladder with chronic cholecystitis without obstruction Status: Acute Assessment and Plan: Doing well postop day 1. From laparoscopic cholecystectomy with intraop cholangiogram. Gradually increasing his diet will encourage him to be up and about. May be discharged when okay with Cardiology and Internal Medicine. Follow up with me in 2 week Discussed postoperative plans and diet. Patient will gradually return to normal activity over the next 2-3 weeks. Subjective Subjective Date/Time Seen: 10/25/21 08:13 Post Op day: 1 (Improving nicely -- no BM for several days) Patient reports: feels better, still having pain, tolerating liquids well, flatus and no bowel movement Review of Systems Review of Systems: All systems reviewed & are unremarkable except as noted in HPI and below Constitutional: Constitutional: Reports as per HPI, Denies chills and Denies fever(s) Cardiovascular: Cardiovascular: Denies chest pain and Denies dyspnea Respiratory: Respiratory: Reports no additional respiratory complaints and Denies dyspnea Gastrointestinal: Gastrointestinal: Reports as per HPI and Denies bloating Musculoskeletal: Musculoskeletal: Reports no additional musculoskeletal complaints Neurologic: Denies memory loss Psychiatric: Psychiatric: Denies anxiety and Denies memory loss Exam Const: General: cooperative, comfortable, alert and awake Orientation/consciousness: patient oriented x3 HENMT: Head: normal to inspection Mouth: Yes moist mucous membranes Eyes: Sclera: sclerae normal Pupils: Equal, round and reactive pupils present Neck: Neck: normal visual inspection and no JVD Chest: Chest palpation & inspection: normal inspection of the chest Resp: Effort & Inspection: normal respiratory effort Auscultation: clear to auscultation bilaterally Cardio: Jugular venous distension: no JVD Rate: regular rate GI: Inspection: incision ( clean and dry with surgical glue in place), obesity and other ( good bowel sounds and minimal tenderness.) Neuro: General: patient oriented x3 Cranial nerves: Yes Equal, round and reactive pupils present Objective Data Vital Signs Vital Signs: Vital Signs - 24 hr 10/24/21 08:48 10/24/21 10:00 10/24/21 11:50 Temperature 36.4 C L Pulse Rate 85 85 Respiratory Rate 16 Blood Pressure 123/77 Pulse Oximetry 97 100 Oxygen Delivery Room Air Room Air Oxygen Flow Rate 10/24/21 16:02 10/24/21 16:15 10/24/21 16:30 Temperature 35.7 C L Pulse Rate 114 H 106 H 124 H Respiratory Rate 16 18 15 Blood Pressure 148/101 H 163/92 H 143/83 H Pulse Oximetry 99 100 100 Oxygen Delivery Simple Face Mask Simple Face Mask Oxygen Flow Rate 10 10 10 10/24/21 16:45 10/24/21 17:00 10/24/21 17:20 Temperature Pulse Rate 100 99 84 Respiratory Rate 18 18 Blood Pressure 142/86 H 128/93 H Pulse Oximetry 100 100 Oxygen Delivery Nasal Cannula Nasal Cannula Oxygen Flow Rate 2 2 10/24/21 18:00 10/24/21 20:00 10/24/21 20:00 Temperature 36.8 C Pulse Rate 85 84 Respiratory Rate 16 Blood Pressure 131/90 Pulse Oximetry 100 100 Oxygen Delivery Nasal Cannula Oxygen Flow Rate 2 10/24/21 20:00 10/24/21 22:00 10/25/21 00:00 Temperature Pulse Rate 86 85 Respiratory Rate Blood Pressure Pulse Oximetry 98 Oxygen Delivery Room Air Oxygen Flow Rate 10/25/21 00:00 10/25/21 02:00 10/25/21 00:00 Temperature 36.6 C Pulse Rate 85 86 85 Respiratory Rate 20 Blood Pressure 133/93 H Pulse Oximetry 98 Oxygen Delivery Oxygen Flow Rate 10/25/21 04:00 10/25/21 04:00 10/25/21 04:00 Temperature 36.7 C Pulse Rate 85 85 Respiratory Rate 11 L Blood Pressure 113/78 Pulse Oximetry 99 98 Oxygen Delivery Room Air Oxygen Flow Rate 10/25/21 06:00 10/25/21 00:45 Temperature Pulse Rate 85 84
[2021-10-25] MEDS: MORPHINE SULFATE (*CRX) 4 MG/ML INJ IV PUSH ×2 (08:45→11:36)
[2021-10-25] MEDS: PROMETHAZINE HCL 25 MG/ML AMPUL 12.5 MG IV PUSH (08:45)
[2021-10-25] MEDS: dilTIAZem HCL CD 180 MG CAP.ER.24H 360 MG PO ×2 (08:46→20:11)
[2021-10-25] MEDS: PANTOPRAZOLE SODIUM IV 40 MG VIAL IV PUSH (08:46)
[2021-10-25] MEDS: ENOXAPARIN 40 MG/0.4 ML SYRINGE SUB-Q (08:46)
--- NOTE | 2021-10-25 08:46 | PM.IMPN ---
Progress Note: A&P Assessment and Plan (1) Sepsis: Code(s): A41.9 - Sepsis, unspecified organism Status: Acute Assessment and Plan: Patient with sepsis present on admission related to the tachycardia, leukocytosis and fever. The source of his sepsis is the acute cholecystitis. Sepsis symptoms have resolved. White count is normal. Continue IV Flagyl and Cipro. (2) Acute cholecystitis: Code(s): K81.0 - Acute cholecystitis Status: Acute Assessment and Plan: CT scan showing gallstones and evidence of acute cholecystitis. He has pneumobilia. It is unclear if he had any type of sphincterotomy when he was 15 years old. Both biliary and hepatic liver tests are elevated. ERCP showing removal of stone, debris and sludge with balloon sweep. He underwent sphincterotomy as well. It should be mentioned that the LFTs were improving prior to the procedure. Appreciate GI input. Possible laparoscopic cholecystectomy tomorrow. Patient will be NPO after midnight. 10/24/21 S/P lap vasquez today. Had ERCP yesterday w/ CBD stone removed. -10/25/21 POD#1 tolerating a diet. Discussed possible GI sxs after cholecystectomy. Patient verbalized understanding. Will restart anticoagulation tonight. (3) Choledocholithiasis: Code(s): K80.50 - Calculus of bile duct without cholangitis or cholecystitis without obstruction Status: Acute Assessment and Plan: Stone removed with balloon sweep. As above. (4) Atrial fibrillation with RVR: Code(s): I48.91 - Unspecified atrial fibrillation Status: Acute Assessment and Plan: Patient has known paroxysmal AFib. Patient developed AFib with RVR in the emergency room related to above He was treated with 2 doses of IV diltiazem. On presentation to the ICU, patient's heart rate was 150s. He was asymptomatic from this. He was resumed on his oral diltiazem. Was able to bring in his dofetilide so this was resumed as well. His heart rate improved. He has converted to normal sinus rhythm. Continue to monitor closely on telemetry. Xarelto remains on hold for pending surgery. -Rivaroxaban 20 mg ordered for 2100 tonight (5) Elevated LFTs: Code(s): R79.89 - Other specified abnormal findings of blood chemistry Status: Acute Assessment and Plan: LFTs noted on admission. Hepatitis panel negative. COVID negative. Repeat levels trending downward this morning. [place] related to above. (6) EVANGELINA on CPAP: Code(s): G47.33 - Obstructive sleep apnea (adult) (pediatric); Z99.89 - Dependence on other enabling machines and devices Status: Acute Assessment and Plan: Patient compliant with CPAP at home. Will continue the same here. (7) Morbid obesity with BMI of 40.0-44.9, adult: Code(s): E66.01 - Morbid (severe) obesity due to excess calories; Z68.41 - Body mass index [BMI] 40.0-44.9, adult Status: Acute Assessment and Plan: Patient was congratulated on his weight loss. Encouraged patient to continue with healthy lifestyle choices. Plan DVT prophylaxis: SCDs Code status: Full Subjective Date/time seen: 10/25/21 15:46 Patient sitting eating breakfast with family member at bedside. Patient says he tolerated the clears overnight without worsening of nausea. Says he has passed gas. Denies current nausea. Has not been out of bed since surgery. Says he has pain. Review of Systems Gastrointestinal: Gastrointestinal: Denies nausea and Denies vomiting Exam Narrative: GENERAL: NAD, cooperative HEENT: Normocephalic, atraumatic, anicteric NECK: Supple CV: Normal S1, S2, RRR, No MRG RESP: CTAB, Normal work of breathing. EXTREMITIES: Warm and well perfused, no clubbing, cyanosis, or edema. SKIN: warm, dry and intact. NEURO: CN 2-12 grossly intact. Objective Data Vital Signs Vital Signs: Vital Signs - 24 hr 10/24/21 16:02 10/24/21 16:15 10/24/21 16:30
[2021-10-25] MEDS: CIPROFLOXACIN 400 MG/D5W 200ML 200 ML 200 MG IVPB ×2 (11:34→20:09)
[2021-10-25] MEDS: HYDROcodone/acetaminophen (*CRX) 7.5-325 MG TABLET 1 TAB PO (12:54)
[2021-10-25] MEDS: HYDROcodone/acetaminophen (*CRX) 5-325 MG TABLET 1 TAB PO (17:27)
[2021-10-25] MEDS: SENNA/DOCUSATE SODIUM TABLET 2 TAB PO (20:29)
[2021-10-26] VITALS (9 sets, daily range): BP systolic 100–116; BP diastolic 65–82; PULSE 82–87; RESP 16–21; TEMP 36.2–36.6; O2SAT 98–100
[2021-10-26] MEDS: metroNIDAZOLE 500 MG/ISO 100ML 500 MG/100 ML BAG 100 MG IVPB ×2 (01:04→11:08)
[2021-10-26] MEDS: HYDROcodone/acetaminophen (*CRX) 7.5-325 MG TABLET 1 TAB PO (01:08)
[2021-10-26 05:16] LABS: Hematocrit 38.3 % (42.0-52.0); Hemoglobin 12.9 g/dL (14.0-18.0); Mean Corpuscular HGB Conc 33.7 g/dl (32-36); Mean Corpuscular Hemoglobin 29.9 pg (26-34); Mean Corpuscular Volume 88.9 fl (80-100); Mean Platelet Volume 10.7 fl (7.4-10.4); Platelet Count Result 244 k/mm3 (150-375); Red Blood Count 4.31 M/mm3 (4.6-6.20); Red Cell Distribution Width 12.4 % (11.5-14.5); White Blood Count 11.2 K/mm3 (4.5-10.0)
[2021-10-26 05:28] LABS: Alanine Aminotransferase 137 U/L (6-50); Albumin Level 3.4 g/dL (3.5-5.1); Alkaline Phosphatase 135 U/L (38-126); Anion Gap 3 mmol/L (8-16); Aspartate Amino Transferase 38 U/L (17-59); Bilirubin,Total 0.6 mg/dL (0.2-1.3); Blood Urea Nitrogen 10 mg/dL (9-20); Calcium 7.9 mg/dL (8.4-10.2); Carbon Dioxide 27 mmol/L (22-30); Chloride 107 mmol/L (98-107); Estimated CRCL calculation 140 ml/min; Estimated Glomerular Filt Rate > 60; Glucose 99 mg/dL (65-110); Potassium 2.9 mmol/L (3.4-5.0); Sodium 137 mmol/L (137-145)
[2021-10-26] MEDS: PANTOPRAZOLE 40 MG TABLET PO (09:40)
[2021-10-26] MEDS: dilTIAZem HCL CD 180 MG CAP.ER.24H 360 MG PO (09:40)
[2021-10-26] MEDS: CIPROFLOXACIN 400 MG/D5W 200ML 200 ML 200 MG IVPB (09:41)
[2021-10-26] MEDS: POTASSIUM CHLORIDE 20 MEQ TABLET.ER 40 MEQ PO (09:41)
--- NOTE | 2021-10-26 14:07 | PM.DS ---
DS: Admitting Diagnosis Discharge Date 10/26/21 Admitting Diagnosis Abdominal Pain DS: Discharge Diagnosis Discharge Diagnosis (1) Sepsis: Code(s): A41.9 - Sepsis, unspecified organism Status: Acute Assessment and Plan: Patient with sepsis present on admission related to the tachycardia, leukocytosis and fever. The source of his sepsis is the acute cholecystitis. Sepsis symptoms have resolved. Patient will be discharged to home with oral ciprofloxacin and metronidazole and advised to follow up with primary care physician within a week of discharge. (2) Acute cholecystitis: Code(s): K81.0 - Acute cholecystitis Status: Acute Assessment and Plan: CT scan showing gallstones and evidence of acute cholecystitis. He has pneumobilia. It is unclear if he had any type of sphincterotomy when he was 15 years old. Both biliary and hepatic liver tests are elevated. ERCP showing removal of stone, debris and sludge with balloon sweep. He underwent sphincterotomy as well. It should be mentioned that the LFTs were improving prior to the procedure. Appreciate GI input. Possible laparoscopic cholecystectomy tomorrow. Patient will be NPO after midnight. 10/24/21 S/P lap vasquez today. Had ERCP yesterday w/ CBD stone removed. -10/25/21 POD#1 tolerating a diet. Discussed possible GI sxs after cholecystectomy. Patient verbalized understanding. Will restart anticoagulation tonight. -10/26/21 Patient tolerated a diet without nausea. Having flatus, so bowel function returning. Pain control adequate with [place]. Gave strong warnings about constipation and advised patient to take miralax daily for a bowel movement while taking the norco for pain control. (3) Choledocholithiasis: Code(s): K80.50 - Calculus of bile duct without cholangitis or cholecystitis without obstruction Status: Resolved Assessment and Plan: Stone removed with balloon sweep. As above. (4) Atrial fibrillation with RVR: Code(s): I48.91 - Unspecified atrial fibrillation Status: Acute Assessment and Plan: Patient has known paroxysmal AFib. Patient developed AFib with RVR in the emergency room related to above He was treated with 2 doses of IV diltiazem. On presentation to the ICU, patient's heart rate was 150s. He was asymptomatic from this. He was resumed on his oral diltiazem. Was able to bring in his dofetilide so this was resumed as well. His heart rate improved. He has converted to normal sinus rhythm. Continue to monitor closely on telemetry. -Rivaroxaban 20 mg restarted. Patient will be discharged on home medications. (5) Elevated LFTs: Code(s): R79.89 - Other specified abnormal findings of blood chemistry Status: Acute Assessment and Plan: LFTs noted on admission. Hepatitis panel negative. COVID negative. Repeat levels trending downward. Elevation was likely due to CBD stone that was removed. (6) EVANGELINA on CPAP: Code(s): G47.33 - Obstructive sleep apnea (adult) (pediatric); Z99.89 - Dependence on other enabling machines and devices Status: Acute Assessment and Plan: Patient compliant with CPAP at home. Continue. (7) Morbid obesity with BMI of 40.0-44.9, adult: Code(s): E66.01 - Morbid (severe) obesity due to excess calories; Z68.41 - Body mass index [BMI] 40.0-44.9, adult Status: Acute Assessment and Plan: Patient was congratulated on his weight loss. Encouraged patient to continue with healthy lifestyle choices. DS: Summary Hospital Course Reason for hospitalization: Acute Cholecystitis, Atrial fibrillation with rapid ventricular response Hospital Course: 41M with a past medical history of atrial fibrillation on xaralto, morbid obesity and obstructive sleep apnea who presented to the emergency department due to abdominal pain. Patient had CT abdomen pelvis showing a distended gallbladder concerning fo
== END 2021-10-26 16:30 | disposition home or self-care (01) | DRG 854 ==
LOC: ANHED 10-22 01:10 → ANHICU 10-22 06:13 → ANH2MED 10-25 21:32 → ANHICU 10-28 09:09
PROVIDERS: Internal Medicine; Internal Medicine Gastroenterology; Physician Assistant; Surgery; Admitting Provider Internal Medicine; Emergency Provider Emergency Medicine; Visit Provider Family Medicine
PROC: 0FC98ZZ Extirpation of Matter from Common Bile Duct, Via Natural or Artificial Opening Endoscopic (ICD-10-PCS; CPT 43260; principal; 2021-10-23 13:15)
PROC: 0FT44ZZ Resection of Gallbladder, Percutaneous Endoscopic Approach (ICD-10-PCS; CPT 47562; principal; 2021-10-24 12:30)
DX: A41.9 Sepsis, unspecified organism (principal); K80.12 Calculus of gallbladder with acute and chronic cholecystitis without obstruction; Z68.41 Body mass index [BMI] 40.0-44.9, adult; K80.46 Calculus of bile duct with acute and chronic cholecystitis without obstruction; Z20.822 Contact with and (suspected) exposure to COVID-19; I48.91 Unspecified atrial fibrillation; G47.33 Obstructive sleep apnea (adult) (pediatric); G89.29 Other chronic pain; Z95.0 Presence of cardiac pacemaker; Z87.891 Personal history of nicotine dependence; Z79.899 Other long term (current) drug therapy; R00.0 Tachycardia, unspecified; R79.89 Other specified abnormal findings of blood chemistry; E66.01 Morbid (severe) obesity due to excess calories; Z79.01 Long term (current) use of anticoagulants; Z99.89 Dependence on other enabling machines and devices
CPT/HCPCS: 36415; 74177; 74300; 74329; 80048; 80053; 80074; 80076; 81001; 82248; 83690; 83735; 84100; 84443; 85025; 85027; 85610; 85730; 86140; 86850; 86900; 86901; 88304; 93005; 96361; 96365; 96366; 96368; 96375; 96376; 99285; A9270; C9113; C9803; G0378; J0330; J0744; J1100; J1170; J1650; J2001; J2270; J2405; J2550; J2704; J2710; J3010; J7030; J7120; Q9967; U0003; U0005